=== PATIENT | female | born 1945 | race Caucasian/White ===

== ENCOUNTER 2017-10-17 09:00 | Emergency (ER) | payer BC, MEDICARE ==
[~2017-10-17] VITALS: Ht 165.1 cm; Wt 92.1 kg
[~2017-10-17 09:00] MED LIST: AMLODIPINE BES2.5 MG PO; APIDRA100 UNIT/2 SQ; APRIDA; APRIDA SC; ASPIRIN PO; ATORVASTATIN CA20 MG PO; DIOVAN160 MG PO; IRON PO; IRON325 M1; JANUVIA100 MG PO; METFORMIN HCL500 MG PO; NITROFURANTOIN100 MG PO; NOVOLOG100 UNIT/1 INJ; PANTOPRAZOLE SO40 MG PO; PRAVASTATIN SOD20 MG PO; PROAIR HFA INH8.5 GM INH; SPIRONOLACTONE25 MG PO; SUCRALFATE1 GM PO; SYMBICORT 16010.2 GM INH; TRADJENTA5 MG PO; VIT B12 10001000 MCG GT; VIT E PO; Z.0.ATENOLOL50 MG PO; Z.0.DIGOXIN125 MCG PO; Z.0.GLYBURIDE5 MG PO; Z.0.LANTUS100 UNIT/1 SQ; Z.0.LEVOTHYROXINE175 PO; Z.0.LISINOPRIL5 MG PO; Z.0.PANTOPRAZOLE SO4 PO; [UNRECOGNIZED DRUG - OTHER] PO
--- OUTSIDE RECORDS SUMMARY | 2017-10-17 09:03 | XMS REPORT | Summary of Care ---
Author Author MIKE ARMSTRONG M.D. Organization Unknown Address [facility] Phone Unavailable Care Team Providers Care Baseball Hand Sewer Name Role Phone MIKE ARMSTRONG M.D. Unavailable Unavailable Unavailable Unavailable Functional Status Name Dates Details Functional status health issues are not documented Status: Name Dates Details Cognitive status health issues are not documented Status: Problems Name Dates Details Joint pain, hip (719.45, M25.559) Status: Active Diverticulitis (562.11, K57.92) Status: Active Heart disease (429.9, I51.9) Status: Active Cyst of left kidney (753.10, N28.1) Status: Active Cirrhosis, nonalcoholic (571.5, K74.60) Status: Active Vaginal candidiasis (112.1, B37.3) Status: Active Gastroparesis (536.3, K31.84) Status: Active Hyperlipidemia (272.4, E78.5) Status: Active Hypertension (401.9, I10) Status: Active COPD (chronic obstructive pulmonary disease) (496, J44.9) Status: Active Diabetes mellitus (250.00, E11.9) Status: Active Hypothyroidism (244.9, E03.9) Status: Active Diabetes mellitus type 2, uncontrolled (250.02, E11.65) Status: Active Medications Name Dates Details Atenolol 50 MG Oral Tablet TAKE 1 TABLET TWICE DAILY Active Aspirin 81 MG TABS TAKE 1 TABLET DAILY. * Refills: 0 Active Digoxin 125 MCG Oral Tablet TAKE 1 TABLET DAILY. * Refills: 0 Active Valsartan 160 MG Oral Tablet TAKE 1 TABLET DAILY. * Quantity: 90 Refills: 1 MIKE ARMSTRONG M.D. Active Pantoprazole Sodium 40 MG Oral Tablet Delayed Release TAKE 1 TABLET TWICE DAILY * Refills: 0 Active Levothyroxine Sodium 175 MCG Oral Tablet TAKE 1 TABLET BY MOUTH DAILY * Quantity: 90 Refills: 0 MIKE ARMSTRONG M.D. * Start : 06-Aug-2017 Active Spironolactone 25 MG Oral Tablet TAKE 1 TABLET DAILY * Refills: 0 Active Iron TABS TAKE 1 TAB BID * Refills: 0 Active V-R Vitamin E CAPS Take 1 cap BID * Refills: 0 Active MetFORMIN HCl - 500 MG Oral Tablet TAKE 2 TABLETS BY MOUTH TWICE DAILY * Quantity: 360 Refills: 0 MIKE ARMSTRONG M.D. * Start : 06-Aug-2017 Active Lantus SoloStar 100 UNIT/ML Subcutaneous Solution Pen-injector INJECT 55 UNITS TWICE AT BEDTIME MAX DAILY DOSE OF 120 UNITS * Quantity: 3 Refills: 3 MIKE ARMSTRONG M.D. * Start : 19-May-2017 Active 3 ML Pen Januvia 100 MG Oral Tablet take 1 tablet po daily * Quantity: 90 Refills: 0 MIKE ARMSTRONG M.D. * Start : 05-Nov-2014 Active Rikki Contour Next Test In Vitro Strip Check BG 4x a day * Quantity: 4 Refills: 0 MIKE ARMSTRONG M.D. * Start : 05-Nov-2014 Active 100 Strip Box NovoLOG FlexPen 100 UNIT/ML Subcutaneous Solution Pen-injector inject 55 U w/large breakfast but 25 U w/small breakfast, 35 U w/lunch and 50 U w/dinner plus CF 1:50>150 mg/dL, if has snack 15 U MDD:160 U * Quantity: 4 Refills: 2 MIKE ARMSTRONG M.D. * Start : 03-Jul-2015 Active 5 x 3 ML Pen Unifine Pentips 31G X 8 MM use with insulin pens to inject 4xs daily * Quantity: 400 Refills: 0 MIKE ARMSTROGN M.D. * Start : 31-Jul-2015 Active Atorvastatin Calcium 20 MG Oral Tablet TAKE 1 TABLET BY MOUTH AT BEDTIME * Quantity: 90 Refills: 0 MIKE ARMSTRONG M.D. * Start : 30-May-2017 Active Symbicort AERO * Refills: 0 Active AmLODIPine Besylate 2.5 MG Oral Tablet TAKE 1 TABLET DAILY. * Refills: 0 Active ProAir HFA AERS * Refills: 0 Active Allergies and Adverse Reactions Name Dates Details Bactrim TABS (Allergy) Status: Active Lasix (Allergy) Status: Active Adhesive Tape (Allergy) Status: Active Past Medical History Name Dates Details History of Back pain (724.5, M54.9) Status: Resolved History of Kidney stones (592.0, N20.0) Status: Resolved History of Pneumonia (486, J18.9) Status: Resolved Procedures Procedure Dates Details History of Section Completed History of Wrist Surgery Completed History of Hysterectomy Completed History of Tubal Ligation Completed History of Colon Surgery Completed History of Knee Surgery Completed Immunization Name Dates Details Immunizations not documented Family History Name Dates Details Family history of Cancer (199.1, C80.1) Status: Active Family history of Heart disease (429.9, I51.9) Status: Active Family history of Arthritis (716.90, M19.90) Status: Active Family history of Depression (311, F32.9) Status: Active Name Dates Details Family history of Diabetes (250.00, E11.9) Status: Active Family history of Hypertension (401.9, I10) Status: Active Social History Name Dates Details - Status: Name Dates Details Former smoker Vital Signs Date Test Result Details No Known Vitals to report Results Date Description Value Details Results not documented Plan of Care Name Dates Details Planned Observations Planned Goals not documented Planned Encounters Appointment; MIKE ARMSTRONG M.D. On: 26-Sep-2017 14:00 Instructions Name Dates Details Instructions not documented Encounters Appointment; MIKE ARMSTRONG M.D. Encounter Diagnosis: Problem not documented On: 02-Oct-2015 14:00 Appointment; MIKE ARMSTRONG M.D. Encounter Diagnosis: Problem not documented On: 02-Feb-2016 14:00 Appointment; MIKE ARMSTRONG M.D. Encounter Diagnosis: Problem not documented On: 05-May-2016 16:00 Appointment; MIKE ARMSTRONG M.D. Encounter Diagnosis: Problem not documented On: 11-Aug-2016 15:30 Appointment; MIKE ARMSTRONG M.D. Encounter Diagnosis: Problem not documented On: 11-Nov-2016 13:00 Appointment; MIKE ARMSTRONG M.D. Encounter Diagnosis: Problem not documented On: 29-Mar-2017 13:00 Appointment; MIKE ARMSTRONG M.D. Encounter Diagnosis: Problem not documented On: 28-Jun-2017 13:00
[2017-10-17] MEDS ORDERED: HYDROCODONE/APAP 7.5MG-325MG 1 EA TAB PO ONE (10:00)
--- NOTE | 2017-10-17 11:06 | Diagnostic Imaging Report ---
FOREARM LEFT 2 VIEW, WRIST COMPLETE LEFT HISTORY: Fall. COMPARISON: None available. FINDINGS: Bones: Mildly comminuted mildly displaced impaction fracture of the distal radius with intra-articular extension. Osseous alignment is within normal limits. Joints: Moderate degenerative changes of the first carpometacarpal joint. Soft tissues: The soft tissues appear unremarkable. IMPRESSION: Acute fracture of the distal radius. Signed by: DR. Rebel Malcolm MD on 10/17/2017 11:02 AM
[2017-10-17 12:24] VITALS: BP 144/95
== END 2017-10-17 12:25 | disposition home or self-care (01) ==
LOC: ER 09:00
DX: S52.502A Unspecified fracture of the lower end of left radius, initial encounter for closed fracture (principal); W19.XXXA Unspecified fall, initial encounter; Y92.009 Unspecified place in unspecified non-institutional (private) residence as the place of occurrence of the external cause; I10 Essential (primary) hypertension; E11.9 Type 2 diabetes mellitus without complications; Z79.4 Long term (current) use of insulin; I48.91 Unspecified atrial fibrillation; K74.60 Unspecified cirrhosis of liver
CPT/HCPCS: 99283

== ENCOUNTER 2017-12-19 16:00 | Outpatient (RCR) | payer BC, MEDICARE | END 2017-12-20 | LOC: OT 16:00 | PROVIDERS: ATTEND Specialist | DX: S52.502D Unspecified fracture of the lower end of left radius, subsequent encounter for closed fracture with routine healing (principal); M25.532 Pain in left wrist; M25.632 Stiffness of left wrist, not elsewhere classified; R53.1 Weakness | CPT/HCPCS: 97022 ×5; 97110 ×6; 97165; G8987; G8988 ==

== ENCOUNTER 2018-01-10 08:56 | Outpatient (RCR) | payer BC, MEDICARE | END 2018-01-20 | LOC: OT 08:56 | PROVIDERS: ATTEND Specialist | DX: S52.502D Unspecified fracture of the lower end of left radius, subsequent encounter for closed fracture with routine healing (principal); M25.532 Pain in left wrist; M25.632 Stiffness of left wrist, not elsewhere classified; R53.1 Weakness | CPT/HCPCS: 97010; 97022 ×6; 97110 ×7; 97140; G8987; G8988 ==

== ENCOUNTER 2018-02-14 10:57 | Outpatient (RCR) | payer BC, MEDICARE ==
[2018-02-20] MEDS ORDERED: SIMBICORT (12:47)
[2018-02-20] MEDS ORDERED: ASPIRIN81 MG (12:47)
== END 2018-02-19 ==
LOC: OT 10:57
PROVIDERS: ATTEND Specialist
DX: S62.102A Fracture of unspecified carpal bone, left wrist, initial encounter for closed fracture (principal)
CPT/HCPCS: 97022 ×3; 97110 ×3; 97139; 97168; G8987; G8988

== ENCOUNTER → 2018-02-22 | Day surgery (SDC) | payer BC, MEDICARE ==
[2018-02-20 13:03] LABS: BASOPHILS % 0.6 % (0.0-1.0); EOSINOPHILS # (AUTO) 0.1 (0.0-0.4); EOSINOPHILS % 2.3 % (0.0-6.0); HEMATOCRIT 33.6 % (34.2-44.1); HEMOGLOBIN 11.2 g/dL (12.0-16.0); LYMPHOCYTES # (AUTO) 0.6 (1.0-3.2); LYMPHOCYTES % 17.5 % (18.0-39.1); MEAN CORPUSCULAR HEMOGLOBIN 29.1 pg (28-32); MEAN CORPUSCULAR HGB CONC 33.3 g/dL (31-35); MEAN CORPUSCULAR VOLUME 87.3 fL (81-99); MONOCYTES # (AUTO) 0.4 (0.2-0.8); MONOCYTES % 11.6 % (4.4-11.3); NEUTROPHILS # (AUTO) 2.4 (2.1-6.9); NEUTROPHILS % 67.7 % (38.7-80.0); PLATELET COUNT 56 x10e3/uL (140-360); RED BLOOD COUNT 3.85 x10e6/uL (3.6-5.1); RED CELL DISTRIBUTION WIDTH 14.2 % (11.7-14.4)
[2018-02-20 13:20] LABS: INR 1.03; PARTIAL THROMBOPLASTIN TIME 27.5 seconds (23.8-35.5); PROTHROMBIN TIME 14.4 seconds (11.9-14.5)
[2018-02-20 13:29] LABS: ALANINE AMINOTRANSFERASE 23 IU/L (0-55); ALBUMIN 3.7 g/dL (3.5-5.0); ALBUMIN/GLOBULIN RATIO 1.1 (0.8-2.0); ALKALINE PHOSPHATASE 109 IU/L (40-150); ANION GAP 14.9 mmol/L (8-16); BLOOD UREA NITROGEN 10 mg/dL (7-26); BUN/CREATININE RATIO 13 (6-25); CALCIUM 9.5 mg/dL (8.4-10.2); CARBON DIOXIDE 24 mmol/L (22-29); CHLORIDE 104 mmol/L (98-107); CREATININE, SERUM 0.79 mg/dL (0.57-1.11); EST GLOMERULAR FILTRATION RATE > 60 ML/MIN (60-); GLUCOSE 140 mg/dL (74-118); POTASSIUM 3.9 mmol/L (3.5-5.1); SODIUM 139 mmol/L (136-145)
[~2018-02-22] MED LIST changes: +ASPIRIN81 MG; +FENTANYL CITRATE/PF 100MCG/2 ML INJ ONE; +PROPOFOL IV EMULSION 10 MG/ML 20 ML VIAL ONE; +SIMBICORT
[2018-02-22 12:30] VITALS: BP 176/62
== END | disposition home or self-care (01) ==
LOC: OR 08:52
PROVIDERS: ATTEND Internal Medicine Gastroenterology
DX: K74.60 Unspecified cirrhosis of liver (principal); K29.70 Gastritis, unspecified, without bleeding; I85.10 Secondary esophageal varices without bleeding; K57.30 Diverticulosis of large intestine without perforation or abscess without bleeding; K44.9 Diaphragmatic hernia without obstruction or gangrene; K76.6 Portal hypertension; K31.89 Other diseases of stomach and duodenum; K21.9 Gastro-esophageal reflux disease without esophagitis; Z71.3 Dietary counseling and surveillance; E66.9 Obesity, unspecified; I10 Essential (primary) hypertension; E11.43 Type 2 diabetes mellitus with diabetic autonomic (poly)neuropathy; D69.6 Thrombocytopenia, unspecified; M19.90 Unspecified osteoarthritis, unspecified site; F32.9 Major depressive disorder, single episode, unspecified; G47.33 Obstructive sleep apnea (adult) (pediatric); J44.9 Chronic obstructive pulmonary disease, unspecified; E03.9 Hypothyroidism, unspecified; I48.91 Unspecified atrial fibrillation; E78.5 Hyperlipidemia, unspecified; Z01.810 Encounter for preprocedural cardiovascular examination; Z01.812 Encounter for preprocedural laboratory examination; Z88.1 Allergy status to other antibiotic agents; Z91.040 Latex allergy status; Z88.2 Allergy status to sulfonamides; Z88.8 Allergy status to other drugs, medicaments and biological substances; Z91.048 Other nonmedicinal substance allergy status; Z79.82 Long term (current) use of aspirin; Z79.4 Long term (current) use of insulin; Z68.34 Body mass index [BMI] 34.0-34.9, adult; Z87.891 Personal history of nicotine dependence
CPT/HCPCS: 36415; 43239; 80053; 82948; 85025; 85610; 85730; 93005

== ENCOUNTER 2018-03-02 10:00 | Outpatient (RCR) | payer BC, MEDICARE ==
[~2018-03-02 10:00] MED LIST changes: -FENTANYL CITRATE/PF 100MCG/2 ML INJ ONE; -PROPOFOL IV EMULSION 10 MG/ML 20 ML VIAL ONE
== END 2018-03-22 ==
LOC: OT 10:00
PROVIDERS: ATTEND Specialist
DX: S62.102A Fracture of unspecified carpal bone, left wrist, initial encounter for closed fracture (principal)
CPT/HCPCS: 97022 ×4; 97110 ×4; 97139; G8988; G8989

== ENCOUNTER 2019-03-04 12:43 | Inpatient (IN) | payer MEDICARE, BC ==
[~2019-03-04] VITALS: Ht 165.1 cm; Wt 85.4 kg
[2019-03-04] MEDS ORDERED: ACETAMINOPHEN 325 MG TAB PO ONE (13:00)
--- NOTE | 2019-03-04 13:19 | Diagnostic Imaging Report ---
EXAMINATION: CXR 2 VIEW - HOPD INDICATION: Cough, COPD. COMPARISON: None FINDINGS: TUBES and LINES: None. LUNGS: Hyperinflated lungs. Patchy opacities in the bilateral lower lungs. No evidence of lobar consolidation. There is a focal opacity in the lateral right midlung. PLEURA: No pleural effusion or pneumothorax. HEART AND MEDIASTINUM: The cardiomediastinal silhouette is unremarkable. There are atherosclerotic calcifications within the aorta. BONES AND SOFT TISSUES: No acute osseous abnormality. UPPER ABDOMEN: No free air under the diaphragm. IMPRESSION: Emphysematous changes of the lungs with mild patchy opacities at the lung bases which may represent early pneumonia in the setting of cough. Focal opacity in the lateral aspect of the right midlung, may represent additional site of infection, although pulmonary nodule is not excluded. Recommend follow-up chest radiograph in 6-8 weeks to assess for resolution. Signed by: Dr. Sukhdeep Muller MD on 03/04/2019 1:16 PM
[2019-03-04] MEDS ORDERED: ACETAMINOPHEN 325 MG TAB ONE (13:27)
[2019-03-04] MEDS ORDERED: LEVOFLOXACIN 750MG/D5W 150ML 150 ML IV ONE ×2 (13:30→13:34)
[2019-03-04] MEDS ORDERED: AZITHROMYCIN 500MG/NS 250 ML 250 ML ONE (13:31)
--- NOTE | 2019-03-04 14:10 | NUR ---
CALLED LAB TO NOTIFY OF BLOOD, BC, LACTIC BEING SENT; SPOKE TO ARNOLDO
--- NOTE | 2019-03-04 14:19 | NUR ---
NOW NEEDING EKG. 12 LEAD DONE PER MD ORDER
--- NOTE | 2019-03-04 14:24 | NUR ---
PURPLE TOP SENT TO MAIN LAB TO HAVE CBC RE RAN PER MD.
[2019-03-04 15:07] LABS: BASOPHILS % 0.4 % (0.0-1.0); EOSINOPHILS # (AUTO) 0.1 (0.0-0.4); EOSINOPHILS % 0.6 % (0.0-6.0); HEMATOCRIT 27.6 % (34.2-44.1); HEMOGLOBIN 8.3 g/dL (12.0-16.0); LYMPHOCYTES % 12.1 % (18.0-39.1); MEAN CORPUSCULAR HEMOGLOBIN 22.6 pg (28-32); MEAN CORPUSCULAR HGB CONC 30.1 g/dL (31-35); MONOCYTES # (AUTO) 1.2 (0.2-0.8); MONOCYTES % 14.1 % (4.4-11.3); NEUTROPHILS % 72.4 % (38.7-80.0); PLATELET COUNT 113 x10e3/uL (140-360); RED BLOOD COUNT 3.68 x10e6/uL (3.6-5.1); RED CELL DISTRIBUTION WIDTH 17.2 % (11.7-14.4)
[2019-03-04] MEDS ORDERED: SODIUM CHLORIDE 0.9% 1000ML 1,000 ML IV SCH (15:30)
[2019-03-04] MEDS ORDERED: SODIUM CHLORIDE FLUSH 10 ML SYR INJ PRN (15:30)
--- NOTE | 2019-03-04 15:33 | NUR ---
CALLED EMS FOR TRANSPORT
--- NOTE | 2019-03-04 15:40 | NUR ---
REPORT TO EMS.
[2019-03-04] MEDS ORDERED: SODIUM CHLORIDE 0.9% 1000ML 500 ML IV SCH (15:45)
[2019-03-04] MEDS ORDERED: DEXTROSE 50% SYRINGE 50 ML IV PRN (15:45)
[2019-03-04 16:43] VITALS: BP 149/88
[2019-03-04] MEDS ORDERED: SODIUM CHLORIDE 0.9% 500ML 500 ML IV SCH (17:30)
[2019-03-04] MEDS: CEFEPIME 1GM/NS 0.9% 50 ML 50 ML IV SCH (18:12)
[2019-03-04 19:00] VITALS: BP 167/58
[2019-03-04 20:00] VITALS: BP 180/67
[2019-03-04] MEDS: INSULIN REGULAR, HUMAN 100 UNIT/1 ML 3ML VIAL SQ SCH ×2 (20:07→20:20)
[2019-03-04] MEDS: AZITHROMYCIN 500MG/NS 250 ML 250 ML IV SCH (20:10)
[2019-03-04] MEDS ORDERED: INSULIN REGULAR, HUMAN 100 UNIT/1 ML 3ML VIAL ONE (20:22)
--- NOTE | 2019-03-04 20:52 | NUR ---
Call to Dr. Potts re: HTN. Orders given.
[2019-03-04] MEDS: LABETALOL HCL 5 MG/ML 20ML VIAL IV PRN ×2 (20:55→23:10)
--- NOTE | 2019-03-04 20:55 | NUR ---
Labetalol 5mg IV given per orders.
[2019-03-04 21:00] VITALS: BP 157/73
[2019-03-04 22:00] VITALS: BP 151/63
[2019-03-04 23:00] VITALS: BP 168/60
[2019-03-05] VITALS (26 sets, daily range): BP systolic 131–185; BP diastolic 50–103
[2019-03-05] MEDS: LABETALOL HCL 5 MG/ML 20ML VIAL IV PRN ×2 (02:07→06:38)
[2019-03-05] MEDS ORDERED: HYDRALAZINE HCL 20 MG/ML VIAL IV STA (03:38)
--- NOTE | 2019-03-05 03:40 | NUR ---
BP 190/[address] Potts. New orders given.
--- NOTE | 2019-03-05 03:44 | NUR ---
Hydralazine 10mg IV given.
[2019-03-05] MEDS ORDERED: HYDRALAZINE HCL 20 MG/ML VIAL IV PRN (03:45)
[2019-03-05] MEDS ORDERED: DILTIAZEM HCL 5 MG/ML 5 ML VIAL IV STA (04:18)
--- NOTE | 2019-03-05 04:24 | NUR ---
Call to Dr. Potts. Advised of EKG in A Fib with RVR. Orders given.
[2019-03-05] MEDS ORDERED: DILTIAZEM HCL IV 5MG/ML 25 ML VIAL ONE (04:26)
[2019-03-05] MEDS ORDERED: SODIUM CHLORIDE 0.9% 100 ML ONE (04:26)
--- NOTE | 2019-03-05 04:26 | NUR ---
Cardizem 10mg IV bolus given then Cardizem drip started at 5mg/hr and increased to 10mg/hr after 15 min.
[2019-03-05] MEDS: DILTIAZEM HCL 125 ML IV SCH (04:30)
[2019-03-05 05:58] LABS: ANION GAP 13.9 mmol/L (8-16); BLOOD UREA NITROGEN 10 mg/dL (7-26); BUN/CREATININE RATIO 13 (6-25); CARBON DIOXIDE 22 mmol/L (22-29); CHLORIDE 105 mmol/L (98-107); CREATININE, SERUM 0.76 mg/dL (0.57-1.11); EST GLOMERULAR FILTRATION RATE > 60 ML/MIN (60-); GLUCOSE 173 mg/dL (74-118); POTASSIUM 3.9 mmol/L (3.5-5.1); SODIUM 137 mmol/L (136-145)
--- NOTE | 2019-03-05 06:02 | NUR ---
HR 120s. Increased Cardizem to 15mg/hr.
[2019-03-05 06:03] LABS: BASOPHILS % 0.4 % (0.0-1.0); EOSINOPHILS # (AUTO) 0.1 (0.0-0.4); EOSINOPHILS % 1.1 % (0.0-6.0); HEMATOCRIT 25.3 % (34.2-44.1); HEMOGLOBIN 7.4 g/dL (12.0-16.0); LYMPHOCYTES # (AUTO) 0.8 (1.0-3.2); LYMPHOCYTES % 17.3 % (18.0-39.1); MEAN CORPUSCULAR HEMOGLOBIN 22.2 pg (28-32); MEAN CORPUSCULAR HGB CONC 29.2 g/dL (31-35); MEAN CORPUSCULAR VOLUME 75.7 fL (81-99); MONOCYTES # (AUTO) 0.6 (0.2-0.8); MONOCYTES % 14.2 % (4.4-11.3); NEUTROPHILS % 66.6 % (38.7-80.0); PLATELET COUNT 80 x10e3/uL (140-360); RED BLOOD COUNT 3.34 x10e6/uL (3.6-5.1); RED CELL DISTRIBUTION WIDTH 16.9 % (11.7-14.4)
[2019-03-05] MEDS: INSULIN REGULAR, HUMAN 100 UNIT/1 ML 3ML VIAL SQ SCH ×4 (08:06→21:48)
--- NOTE | 2019-03-05 08:40 | NUR ---
H&P cc:sob/cough HPI: 73yoF, PCP , developed sob/cough; Pt has a hx smoking, and recently dx with emphysema. Saw her reliability technologist on 02/12, given steroids and antibiotics, initially improved, but worsened again. PMH: diverticulosis, DM, HTN, PAF, former smoker PSxh: , Hysterectomy Allergies; see emr FH/SH: former smoker; ; Meds; see MR ROS; no f/c/s/N/V/D/TALAVERA/vision changes/skin rash/back pain/leg pain/mood changes v/s; revd PE tired appearinga nicteric ns1s2 reduced BS; no w soft nt nd no e/t skin dry flat affect a&ox3; busby labs/med; revd A/P: AECOPD Pancytopenia Microcytic anemia Obesity BMI 31.3 PAF Former smoker PLAN IV abx lipids/hba1c PT consult ppi; scd Srinivas Potts MD, PhD.
[2019-03-05] MEDS ORDERED: NON-FORMULARY MEDICATION (Levothyroxine Sodium 175 MCG) PO SCH (09:00)
[2019-03-05] MEDS ORDERED: DIGOXIN 125 MCG PO SCH (09:00)
[2019-03-05] MEDS ORDERED: GUAIFENESIN/DEXTROMETHORPHAN LIQD 5 ML UDC NG PRN (09:15)
[2019-03-05 09:24] LABS: CHOL/HDL RATIO 4.6 (3.0-3.6)
--- NOTE | 2019-03-05 09:31 | Diagnostic Imaging Report ---
Chest, 1 view, 03/05/2019. History: Pneumonia. Comparison: 03/04/2019. Findings: The cardiomediastinal silhouette and pulmonary vasculature are within normal limits for a portable exam. Patchy bibasilar opacities are present, left greater than right. There are no acute osseous or soft tissue abnormalities. Impression: Slight increase in bibasilar patchy opacities. Signed by: Lenin Werner on 03/05/2019 9:27 AM
[2019-03-05] MEDS: SPIRONOLACTONE 25 MG TAB PO SCH (09:41)
[2019-03-05] MEDS: ASPIRIN 81 MG CHEW TAB PO SCH (09:41)
[2019-03-05] MEDS: SITAGLIPTIN 100 MG TAB PO SCH (09:41)
[2019-03-05] MEDS: PANTOPRAZOLE SOD 40 MG TABEC PO SCH ×2 (09:42→16:39)
[2019-03-05] MEDS: ATENOLOL 50 MG TAB PO SCH ×2 (09:42→16:39)
[2019-03-05] MEDS: ATORVASTATIN 20 MG TAB PO SCH (09:42)
[2019-03-05] MEDS: DIGOXIN 0.125 MG TAB PO SCH (09:43)
[2019-03-05] MEDS: BENZONATATE 100 MG CAP PO SCH ×3 (09:43→23:37)
[2019-03-05 09:51] LABS: FERRITIN 25.21 ng/mL (4.63-204.00)
[2019-03-05] MEDS: METHYLPREDNISOLONE SOD SUCC 40 MG/ML VIAL 1ML IV SCH ×2 (09:58→21:13)
[2019-03-05] MEDS: LEVOTHYROXINE SODIUM 75 MCG TAB PO SCH (10:00)
[2019-03-05] MEDS: LEVOTHYROXINE SODIUM 100 MCG TAB PO SCH (10:00)
[2019-03-05] MEDS: GUAIFENESIN/DEXTROMETHORPHAN LIQD 5 ML UDC NG SCH ×2 (13:30→23:37)
[2019-03-05] MEDS: CEFEPIME 1GM/NS 0.9% 50 ML 50 ML IV SCH (17:11)
[2019-03-05] MEDS ORDERED: NON-FORMULARY MEDICATION (Amlodipine Besylate 2.5 MG) PO SCH (21:00)
[2019-03-05] MEDS: AMLODIPINE BESYLATE 5 MG TAB PO SCH ×2 (21:00→21:40)
[2019-03-05] MEDS: VALSARTAN 160 MG TAB PO SCH ×2 (21:00→21:40)
[2019-03-05] MEDS: AZITHROMYCIN 500MG/NS 250 ML 250 ML IV SCH (21:05)
[2019-03-06] VITALS (11 sets, daily range): BP systolic 137–156; BP diastolic 50–68
[2019-03-06] MEDS: DILTIAZEM HCL 125 ML IV SCH (04:30)
[2019-03-06] MEDS: GUAIFENESIN/DEXTROMETHORPHAN LIQD 5 ML UDC NG SCH (05:42)
[2019-03-06] MEDS: LEVOTHYROXINE SODIUM 100 MCG TAB PO SCH (05:42)
[2019-03-06] MEDS: LEVOTHYROXINE SODIUM 75 MCG TAB PO SCH (05:42)
[2019-03-06] MEDS: BENZONATATE 100 MG CAP PO SCH (05:43)
--- NOTE | 2019-03-06 07:30 | NUR ---
D/C Summary Principal dx: AECOPD Pancytopenia Microcytic anemia Secondary Dx: Obesity BMI 31.3 PAF Former smoker PLAN IV abx lipids/hba1c PT consult ppi; scd 10-15 Thrombocytopenia- d/c ppi; cont meds; Iron-deficiency anemia- start ferrous sulfate. 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
[2019-03-06] MEDS: INSULIN REGULAR, HUMAN 100 UNIT/1 ML 3ML VIAL SQ SCH (07:48)
[2019-03-06] MEDS ORDERED: FERROUS SULFATE 325 MG TAB PO SCH (08:00)
[2019-03-06] MEDS ORDERED: FERROUS SULFAT325 MG PO (08:05)
[2019-03-06] MEDS ORDERED: TESSALON PERLE100 MG PO (08:05)
[2019-03-06] MEDS ORDERED: Guaifenesin/Dextromethorphan NG (08:05)
[2019-03-06] MEDS ORDERED: VITAMIN B-121000 MCG PO (08:05)
[2019-03-06] MEDS ORDERED: CEFUROXIME500 MG PO (08:06)
[2019-03-06] MEDS ORDERED: PREDNISONE20 MG PO (08:06)
[2019-03-06] MEDS ORDERED: ZITHROMAX500 MG PO (08:06)
[2019-03-06] MEDS: SPIRONOLACTONE 25 MG TAB PO SCH (08:19)
[2019-03-06] MEDS: SITAGLIPTIN 100 MG TAB PO SCH (08:19)
[2019-03-06] MEDS: ASPIRIN 81 MG CHEW TAB PO SCH (08:19)
[2019-03-06] MEDS: ATORVASTATIN 20 MG TAB PO SCH (08:19)
[2019-03-06] MEDS: METHYLPREDNISOLONE SOD SUCC 40 MG/ML VIAL 1ML IV SCH (08:19)
[2019-03-06] MEDS: ATENOLOL 50 MG TAB PO SCH (08:20)
[2019-03-06] MEDS: DIGOXIN 0.125 MG TAB PO SCH (08:20)
[2019-03-06] MEDS ORDERED: CYANOCOBALAMIN 1,000 MCG TAB PO SCH (09:00)
--- NOTE | 2019-03-06 10:15 | NUR ---
Per Dr. Potts patient ok to be discharged today. Patient given prescriptions and education about pneumonia and anemia. Pt educated to follow up with participant administrator and PCP in 1 week. PIV's x2 removed. Patient does not appear to be in any s/s of distress. Patient's came and is driving patient home.
--- NOTE | 2019-03-28 15:11 | NUR ---
ADDENDUM: Possible Bronchopneumonia was present from admission; treated. D/C Summary Principal dx: AECOPD Pancytopenia Microcytic anemia Secondary Dx: Obesity BMI 31.3 PAF Former smoker PLAN IV abx lipids/hba1c PT consult ppi; scd 10-15 Thrombocytopenia- d/c ppi; cont meds; Iron-deficiency anemia- start ferrous sulfate. 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
== END 2019-03-06 10:39 | disposition home or self-care (01) | DRG 190 ==
LOC: FSED 12:43 → ERHOLD 15:27 → FSED 15:53 → ICU 16:44
PROVIDERS: ADMIT Internal Medicine; ATTEND Internal Medicine
DX: J44.1 Chronic obstructive pulmonary disease with (acute) exacerbation (principal); J18.0 Bronchopneumonia, unspecified organism; D61.818 Other pancytopenia; Z88.8 Allergy status to other drugs, medicaments and biological substances; Z91.048 Other nonmedicinal substance allergy status; E10.9 Type 1 diabetes mellitus without complications; E78.00 Pure hypercholesterolemia, unspecified; K75.81 Nonalcoholic steatohepatitis (NASH); Z87.891 Personal history of nicotine dependence; D50.9 Iron deficiency anemia, unspecified; E66.9 Obesity, unspecified; Z68.31 Body mass index [BMI] 31.0-31.9, adult; I48.0 Paroxysmal atrial fibrillation
CPT/HCPCS: 36415; 71045; 71046; 80048; 80053; 80061; 81003; 82270; 82607; 82728; 82948; 83036; 83540; 83605; 84466; 84484; 85025; 87040; 87400; 93005; 96372; 99284; J0360; J0456; J0692; J1817; J2920; J7030; J7040; J7050

== ENCOUNTER 2020-12-05 11:27 | Emergency (ER) | payer MEDICARE, BC ==
[~2020-12-05] VITALS: Ht 165.1 cm; Wt 85.3 kg
[~2020-12-05 11:27] MED LIST changes: +CEFUROXIME500 MG PO; +FERROUS SULFAT325 MG PO; +Guaifenesin/Dextromethorphan NG; +PREDNISONE20 MG PO; +TESSALON PERLE100 MG PO; +VITAMIN B-121000 MCG PO; +ZITHROMAX500 MG PO
[2020-12-05] MEDS ORDERED: DEXTROSE 50% SYRINGE 50 ML IV STA (11:35)
[2020-12-05] MEDS ORDERED: ASPIRIN 81 MG CHEW TAB PO ONE (12:00)
[2020-12-05 12:05] LABS: BASOPHILS # (AUTO) 0.1 (0.0-0.1); BASOPHILS % 0.9 % (0.0-1.0); EOSINOPHILS # (AUTO) 0.4 (0.0-0.4); EOSINOPHILS % 3.9 % (0.0-6.0); HEMATOCRIT 29.2 % (34.2-44.1); HEMOGLOBIN 9.2 g/dL (12.0-16.0); LYMPHOCYTES # (AUTO) 2.7 (1.0-3.2); LYMPHOCYTES % 29.6 % (18.0-39.1); MEAN CORPUSCULAR HEMOGLOBIN 28.6 pg (28-32); MEAN CORPUSCULAR HGB CONC 31.5 g/dL (31-35); MEAN CORPUSCULAR VOLUME 90.7 fL (81-99); MONOCYTES # (AUTO) 1.6 (0.2-0.8); MONOCYTES % 17.2 % (4.4-11.3); NEUTROPHILS # (AUTO) 4.3 (2.1-6.9); NEUTROPHILS % 47.7 % (38.7-80.0); PLATELET COUNT 115 x10e3/uL (140-360); RED BLOOD COUNT 3.22 x10e6/uL (3.6-5.1); RED CELL DISTRIBUTION WIDTH 16.1 % (11.7-14.4)
[2020-12-05 12:27] LABS: ALBUMIN 3.2 g/dL (3.5-5.0); ALBUMIN/GLOBULIN RATIO 1.1 (0.8-2.0); ANION GAP 15.9 mmol/L (8-16); CREATININE, SERUM 1.48 mg/dL (0.57-1.11); POTASSIUM 3.9 mmol/L (3.5-5.1)
[2020-12-05 12:33] LABS: CREATINE KINASE MB 2.5 ng/mL (0-5.0)
[2020-12-05 13:38] VITALS: BP 160/58
== END 2020-12-05 13:45 | disposition home or self-care (01) ==
LOC: ER 11:36
DX: E11.649 Type 2 diabetes mellitus with hypoglycemia without coma (principal); I10 Essential (primary) hypertension; E78.5 Hyperlipidemia, unspecified; J44.9 Chronic obstructive pulmonary disease, unspecified; I48.91 Unspecified atrial fibrillation; E03.9 Hypothyroidism, unspecified; G47.30 Sleep apnea, unspecified; K21.9 Gastro-esophageal reflux disease without esophagitis; Z98.0 Intestinal bypass and anastomosis status
CPT/HCPCS: 36415; 80053; 82550; 82553; 82948; 84484; 85025; 93005; 99283

== ENCOUNTER 2020-12-17 01:54 | Inpatient (IN) | payer MEDICARE, BC ==
[~2020-12-17] VITALS: Ht 165.1 cm; Wt 85.3 kg
[2020-12-17] MEDS ORDERED: DEXTROSE 50% SYRINGE 50 ML IV STA (02:14)
[2020-12-17 02:19] LABS: BASOPHILS # (AUTO) 0.1 (0.0-0.1); BASOPHILS % 0.8 % (0.0-1.0); EOSINOPHILS # (AUTO) 0.2 (0.0-0.4); EOSINOPHILS % 1.9 % (0.0-6.0); HEMATOCRIT 34.2 % (34.2-44.1); HEMOGLOBIN 10.7 g/dL (12.0-16.0); LYMPHOCYTES # (AUTO) 1.6 (1.0-3.2); LYMPHOCYTES % 17.7 % (18.0-39.1); MEAN CORPUSCULAR HEMOGLOBIN 28.4 pg (28-32); MEAN CORPUSCULAR HGB CONC 31.3 g/dL (31-35); MEAN CORPUSCULAR VOLUME 90.7 fL (81-99); MONOCYTES # (AUTO) 1.2 (0.2-0.8); MONOCYTES % 13.5 % (4.4-11.3); NEUTROPHILS % 65.6 % (38.7-80.0); PLATELET COUNT 131 x10e3/uL (140-360); RED BLOOD COUNT 3.77 x10e6/uL (3.6-5.1); RED CELL DISTRIBUTION WIDTH 15.5 % (11.7-14.4)
[2020-12-17 02:34] LABS: ALBUMIN 3.8 g/dL (3.5-5.0); ALBUMIN/GLOBULIN RATIO 1.1 (0.8-2.0); ANION GAP 18.3 mmol/L (8-16); CALCIUM 10.2 mg/dL (8.4-10.2); CREATININE, SERUM 2.23 mg/dL (0.57-1.11); POTASSIUM 4.3 mmol/L (3.5-5.1)
[2020-12-17 02:36] LABS: CREATINE KINASE MB 2.8 ng/mL (0-5.0)
[2020-12-17] MEDS ORDERED: SODIUM BICARBONATE 8.4% INJ 50 ML SYR IV STA (02:47)
[2020-12-17] MEDS ORDERED: DEXTROSE 5% 1,000 ML IV ONE (03:00)
[2020-12-17] MEDS ORDERED: ALBUTEROL SULFATE HFA 8GM INHALATION AEROSOL INH PRN (06:45)
[2020-12-17] MEDS ORDERED: BUDESONIDE/FORMOTEROL 160/4.5MCG INHALER INH SCH (07:00)
[2020-12-17] MEDS ORDERED: LEVOTHYROXINE SODIUM 75 MCG TAB PO SCH (07:15)
[2020-12-17] MEDS ORDERED: LEVOTHYROXINE SODIUM 100 MCG TAB PO SCH (07:15)
[2020-12-17] MEDS ORDERED: PANTOPRAZOLE SOD 40 MG TABEC PO SCH (07:30)
[2020-12-17 07:44] LABS: CREATINE KINASE MB 3.3 ng/mL (0-5.0)
[2020-12-17] MEDS ORDERED: FERROUS SULFATE 325 MG TAB PO SCH (08:00)
[2020-12-17] MEDS ORDERED: CYANOCOBALAMIN 1,000 MCG TAB PO SCH (09:00)
[2020-12-17] MEDS ORDERED: DIGOXIN 0.125 MG TAB PO SCH (09:00)
[2020-12-17] MEDS ORDERED: SPIRONOLACTONE 25 MG TAB PO SCH (09:00)
[2020-12-17] MEDS ORDERED: ATENOLOL 50 MG TAB PO SCH (09:00)
[2020-12-17] MEDS ORDERED: ASPIRIN 81 MG CHEW TAB PO SCH (09:00)
[2020-12-17 12:49] VITALS: BP 151/69
[2020-12-17] MEDS ORDERED: ATORVASTATIN 20 MG TAB PO SCH (21:00)
[2020-12-17] MEDS ORDERED: VALSARTAN 160 MG TAB PO SCH (21:00)
[2020-12-17] MEDS ORDERED: AMLODIPINE BESYLATE 5 MG TAB PO SCH (21:00)
== END 2020-12-17 13:46 | disposition home or self-care (01) | DRG 690 ==
LOC: ER 02:24 → ERHOLD 03:14
PROVIDERS: ADMIT Internal Medicine; ATTEND Internal Medicine
DX: N39.0 Urinary tract infection, site not specified (principal); E11.649 Type 2 diabetes mellitus with hypoglycemia without coma; Z79.4 Long term (current) use of insulin; J44.9 Chronic obstructive pulmonary disease, unspecified; E03.9 Hypothyroidism, unspecified; I48.91 Unspecified atrial fibrillation; Z79.01 Long term (current) use of anticoagulants; F32.9 Major depressive disorder, single episode, unspecified; D64.9 Anemia, unspecified; Z79.899 Other long term (current) drug therapy; E78.5 Hyperlipidemia, unspecified; E66.9 Obesity, unspecified; Z68.31 Body mass index [BMI] 31.0-31.9, adult; R94.31 Abnormal electrocardiogram [ECG] [EKG]
CPT/HCPCS: 36415; 71045; 80053; 82550; 82553; 82948; 84484; 85025; 93005; 99284; J7070

== ENCOUNTER 2021-01-27 13:26 | Inpatient (IN) | payer MEDICARE, BC ==
[~2021-01-27] VITALS: Ht 165.1 cm; Wt 75.3 kg
[2021-01-27 14:06] LABS: BASOPHILS # (AUTO) 0.1 (0.0-0.1); BASOPHILS % 0.7 % (0.0-1.0); EOSINOPHILS # (AUTO) 0.1 (0.0-0.4); EOSINOPHILS % 1.6 % (0.0-6.0); HEMOGLOBIN 10.3 g/dL (12.0-16.0); LYMPHOCYTES # (AUTO) 1.9 (1.0-3.2); LYMPHOCYTES % 21.9 % (18.0-39.1); MEAN CORPUSCULAR HEMOGLOBIN 28.6 pg (28-32); MEAN CORPUSCULAR HGB CONC 31.2 g/dL (31-35); MEAN CORPUSCULAR VOLUME 91.7 fL (81-99); MONOCYTES # (AUTO) 1.6 (0.2-0.8); NEUTROPHILS % 57.5 % (38.7-80.0); PLATELET COUNT 127 x10e3/uL (140-360); RED CELL DISTRIBUTION WIDTH 15.5 % (11.7-14.4)
[2021-01-27 14:08] LABS: CLARITY,URINE SL CLOUDY (CLEAR); COLOR,URINE YELLOW (YELLOW); KETONES,URINE NEGATIVE (NEGATIVE); LEUKOCYTE ESTERASE ,URINE SMALL (NEGATIVE); NITRITE,URINE NEGATIVE (NEGATIVE); PROTEIN,URINE DIPSTICK 2+ (NEGATIVE); URINE UROBILINOGEN 0.2 mg/dL (0.2 - 1)
[2021-01-27 14:20] LABS: BACTERIA,URINE MANY /HPF; EPITHELIAL CELLS,URINE FEW /LPF
[2021-01-27 14:27] LABS: ALBUMIN 3.4 g/dL (3.5-5.0); ALBUMIN/GLOBULIN RATIO 1.2 (0.8-2.0); ANION GAP 17.5 mmol/L (8-16); CALCIUM 10.6 mg/dL (8.4-10.2); CREATININE, SERUM 2.39 mg/dL (0.57-1.11)
[2021-01-27 14:29] LABS: POTASSIUM 6.5 mmol/L (3.5-5.1)
[2021-01-27] MEDS ORDERED: LACTATED RINGER'S 1,000 ML INJ ONE (14:30)
[2021-01-27 14:36] LABS: CREATINE KINASE MB 2.3 ng/mL (0-5.0)
[2021-01-27] MEDS ORDERED: LACTATED RINGER'S 1,000 ML ONE (14:39)
[2021-01-27] MEDS ORDERED: DEXTROSE 50% SYRINGE 50 ML IV STA (15:14)
[2021-01-27] MEDS ORDERED: ALBUTEROL SULF 0.083% NEB SOLN 3 ML NEB NEB STA (15:14)
[2021-01-27] MEDS ORDERED: INSULIN REGULAR, HUMAN 100 UNIT/1 ML IV ONE (15:15)
[2021-01-27] MEDS: SODIUM CHLORIDE 0.9% 1000ML 1,000 ML IV SCH ×2 (15:34→21:41)
[2021-01-27] MEDS ORDERED: CEFTRIAXONE 1 GM in SODIUM CHLORIDE 0.9% 50ML 50 ML IV ONE (15:45)
[2021-01-27 15:46] LABS: ANION GAP 15.6 mmol/L (8-16); CALCIUM 10.7 mg/dL (8.4-10.2); CREATININE, SERUM 2.17 mg/dL (0.57-1.11)
[2021-01-27 15:48] LABS: POTASSIUM 6.6 mmol/L (3.5-5.1)
[2021-01-27] MEDS ORDERED: VITAMIN B-121000 MCG PO (16:02)
[2021-01-27] MEDS ORDERED: IRBESARTAN150 MG PO (16:04)
[2021-01-27] MEDS ORDERED: INSULIN AS100 UNIT/1 SC (16:04)
[2021-01-27] MEDS ORDERED: TOUJEO MAX300 UNIT/1 SC (16:04)
[2021-01-27] MEDS ORDERED: FUROSEMIDE40 MG PO (16:11)
[2021-01-27] MEDS ORDERED: BUMETANIDE INJ 0.25MG/ML 4ML VIAL IV ONE (16:15)
[2021-01-27 18:37] VITALS: BP 145/38
[2021-01-27 20:04] VITALS: BP 150/40
[2021-01-27] MEDS ORDERED: SOD POLYSTYRENE SULFONATE SUSP 15 GM/60 ML BTL PO NR (20:07)
[2021-01-27 21:00] VITALS: BP 150/40
[2021-01-27] MEDS ORDERED: MANNITOL 25% 12.5GM/50 ML VIAL IV ONE ×2 (21:30→23:45)
[2021-01-27] MEDS ORDERED: SODIUM BICARBONATE 8.4% 150 ML in STERILE WATER IV SOLN 1,000 ML IV SCH (21:45)
[2021-01-27] MEDS ORDERED: SODIUM BICARBONATE 8.4% 50 ML VIAL IV ONE (21:45)
[2021-01-27] MEDS ORDERED: DEXTROSE 50% SYRINGE 50 ML IV PRN (23:30)
[2021-01-27] MEDS ORDERED: SODIUM BICARBONATE 8.4% INJ 50 ML SYR IV STA (23:33)
[2021-01-27] MEDS ORDERED: SOD POLYSTYRENE SULFONATE SUSP 15 GM/60 ML BTL PO ONE (23:45)
[2021-01-27] MEDS ORDERED: DEXTROSE 5% 1,000 ML IV ONE (23:49)
[2021-01-27] MEDS ORDERED: SODIUM BICARBONATE 8.4% SYRING 150 ML ONE (23:49)
[2021-01-28] VITALS (10 sets, daily range): BP systolic 150–169; BP diastolic 40–54
[2021-01-28] MEDS ORDERED: SODIUM BICARBONATE 8.4% SYRING 150 ML ONE (00:07)
[2021-01-28] MEDS: SODIUM BICARBONATE 8.4% 150 ML in DEXTROSE 5% 1,000 ML IV SCH ×2 (00:12→08:34)
[2021-01-28] MEDS: LEVOTHYROXINE SODIUM 50 MCG TAB PO SCH (05:21)
[2021-01-28] MEDS: PANTOPRAZOLE SOD 40 MG TABEC PO SCH ×2 (05:21→16:38)
[2021-01-28 07:03] LABS: ANION GAP 16.8 mmol/L (8-16); CALCIUM 9.9 mg/dL (8.4-10.2); CREATININE, SERUM 1.94 mg/dL (0.57-1.11); POTASSIUM 4.8 mmol/L (3.5-5.1)
[2021-01-28 07:28] LABS: CREATINE KINASE MB 2.6 ng/mL (0-5.0)
[2021-01-28] MEDS: AMLODIPINE BESYLATE 5 MG TAB PO SCH (08:35)
[2021-01-28] MEDS: ATENOLOL 50 MG TAB PO SCH ×2 (08:37→17:00)
[2021-01-28] MEDS: INSULIN LISPRO 100 UNIT/1 ML 3ML VIAL SQ SCH ×4 (08:52→22:19)
[2021-01-28] MEDS: DEXTROSE 5% 1,000 ML IV SCH ×2 (12:53→23:45)
[2021-01-28] MEDS: CEFTRIAXONE 1 GM in SODIUM CHLORIDE 0.9% 50ML 50 ML IV SCH (16:38)
[2021-01-28] MEDS: CYANOCOBALAMIN 1,000 MCG TAB PO SCH (22:16)
[2021-01-28] MEDS: ATORVASTATIN 20 MG TAB PO SCH (22:16)
[2021-01-28] MEDS: INSULIN GLARGINE 100 UNITS/ML VIAL SC SCH (22:19)
[2021-01-29] VITALS (8 sets, daily range): BP systolic 132–150; BP diastolic 41–53
[2021-01-29] MEDS: DEXTROSE 5% 1,000 ML IV SCH ×2 (04:15→12:15)
[2021-01-29] MEDS: PANTOPRAZOLE SOD 40 MG TABEC PO SCH ×2 (05:57→16:05)
[2021-01-29] MEDS: LEVOTHYROXINE SODIUM 50 MCG TAB PO SCH (05:57)
[2021-01-29 06:19] LABS: CALCIUM 8.9 mg/dL (8.4-10.2); CREATININE, SERUM 1.46 mg/dL (0.57-1.11)
[2021-01-29 07:04] LABS: PHOSPHORUS 2.7 MG/DL (2.3-4.7); THYROID STIMULATING HORMONE 0.008 uIU/mL (0.350-4.940)
[2021-01-29 07:24] LABS: BASOPHILS % 0.9 % (0.0-1.0); EOSINOPHILS # (AUTO) 0.1 (0.0-0.4); EOSINOPHILS % 2.6 % (0.0-6.0); HEMATOCRIT 29.2 % (34.2-44.1); HEMOGLOBIN 9.5 g/dL (12.0-16.0); LYMPHOCYTES # (AUTO) 1.3 (1.0-3.2); LYMPHOCYTES % 28.6 % (18.0-39.1); MEAN CORPUSCULAR HGB CONC 32.5 g/dL (31-35); MONOCYTES # (AUTO) 0.8 (0.2-0.8); MONOCYTES % 18.5 % (4.4-11.3); NEUTROPHILS # (AUTO) 2.2 (2.1-6.9); NEUTROPHILS % 49.2 % (38.7-80.0); RED BLOOD COUNT 3.28 x10e6/uL (3.6-5.1); RED CELL DISTRIBUTION WIDTH 15.3 % (11.7-14.4)
[2021-01-29 08:02] LABS: PLATELET COUNT 67 x10e3/uL (140-360)
[2021-01-29] MEDS: ATENOLOL 50 MG TAB PO SCH ×2 (08:20→16:05)
[2021-01-29] MEDS: AMLODIPINE BESYLATE 5 MG TAB PO SCH (08:22)
[2021-01-29] MEDS: INSULIN LISPRO 100 UNIT/1 ML 3ML VIAL SQ SCH ×4 (08:33→21:42)
[2021-01-29] MEDS ORDERED: MAGNESIUM SULFATE 2GM/50ML 50 ML IV ONE (11:00)
[2021-01-29] MEDS ORDERED: IRON SUCROSE 100 MG in SODIUM CHLORIDE 0.9% 100 ML 100 ML IV SCH (14:00)
[2021-01-29] MEDS ORDERED: SODIUM CHLORIDE 0.9% 500ML 500 ML ONE (14:30)
[2021-01-29] MEDS: CEFTRIAXONE 1 GM in SODIUM CHLORIDE 0.9% 50ML 50 ML IV SCH (16:05)
[2021-01-29] MEDS: ATORVASTATIN 20 MG TAB PO SCH (20:22)
[2021-01-29] MEDS: CYANOCOBALAMIN 1,000 MCG TAB PO SCH (20:22)
[2021-01-29] MEDS: INSULIN GLARGINE 100 UNITS/ML VIAL SC SCH (21:42)
[2021-01-30] VITALS: BP 157/51
[2021-01-30 04:00] VITALS: BP 159/54
[2021-01-30] MEDS: PANTOPRAZOLE SOD 40 MG TABEC PO SCH (05:33)
[2021-01-30] MEDS: INSULIN LISPRO 100 UNIT/1 ML 3ML VIAL SQ SCH (07:30)
[2021-01-30 08:00] VITALS: BP 156/53
[2021-01-30] MEDS: AMLODIPINE BESYLATE 5 MG TAB PO SCH (08:41)
[2021-01-30] MEDS: ATENOLOL 50 MG TAB PO SCH (08:42)
[2021-01-30 09:40] VITALS: BP 156/53
[2021-01-30 09:43] VITALS: BP 156/53
[2021-01-30 11:47] VITALS: BP 146/56
== END 2021-01-30 13:00 | disposition home or self-care (01) | DRG 640 ==
LOC: ER 13:31 → ERHOLD 15:49 → MED/SURG3 18:23 → OBSVTOIN 23:22
PROVIDERS: ADMIT Internal Medicine; ATTEND Internal Medicine
DX: E87.5 Hyperkalemia (principal); N17.0 Acute kidney failure with tubular necrosis; E87.2 Acidosis; I48.91 Unspecified atrial fibrillation; Z79.01 Long term (current) use of anticoagulants; E03.9 Hypothyroidism, unspecified; E86.0 Dehydration; K21.9 Gastro-esophageal reflux disease without esophagitis; G47.30 Sleep apnea, unspecified; Z87.891 Personal history of nicotine dependence; F03.90 Unspecified dementia, unspecified severity, without behavioral disturbance, psychotic disturbance, mood disturbance, and anxiety; K74.60 Unspecified cirrhosis of liver; R91.8 Other nonspecific abnormal finding of lung field; B96.1 Klebsiella pneumoniae [K. pneumoniae] as the cause of diseases classified elsewhere; E11.22 Type 2 diabetes mellitus with diabetic chronic kidney disease; I12.9 Hypertensive chronic kidney disease with stage 1 through stage 4 chronic kidney disease, or unspecified chronic kidney disease; N18.32 Chronic kidney disease, stage 3b; J44.9 Chronic obstructive pulmonary disease, unspecified; T38.3X5A Adverse effect of insulin and oral hypoglycemic [antidiabetic] drugs, initial encounter; Z20.822 Contact with and (suspected) exposure to COVID-19
CPT/HCPCS: 36415; 51700; 70450; 71045; 71250; 76770; 80048; 80053; 80162; 81001; 82550; 82553; 82607; 82746; 82948; 83036; 83540; 83605; 83735; 84100; 84443; 84466; 84484; 85025; 87040; 87086; 87186; 93005; 94640; 99251; 99284; J0696; J1756; J1817; J2150; J3475; J7030; J7040; J7070; J7121; J7799; U0002

== ENCOUNTER 2021-03-14 04:29 | Emergency (ER) | payer MEDICARE, BC ==
[~2021-03-14] VITALS: Ht 166.4 cm; Wt 73.5 kg
[~2021-03-14 04:29] MED LIST changes: +FUROSEMIDE40 MG PO; +INSULIN AS100 UNIT/1 SC; +IRBESARTAN150 MG PO; +TOUJEO MAX300 UNIT/1 SC
[2021-03-14] MEDS ORDERED: CLONIDINE HCL 0.1 MG TAB PO ONE (05:00)
[2021-03-14] MEDS ORDERED: SODIUM CHLORIDE 0.9% 500ML 500 ML IV STA (05:04)
[2021-03-14] MEDS ORDERED: ONDANSETRON HCL INJ 2MG/ML 2ML 2 MG/ML VIAL ONE (05:13)
[2021-03-14] MEDS ORDERED: CLONIDINE HCL 0.1 MG TAB ONE (05:13)
[2021-03-14] MEDS ORDERED: FAMOTIDINE 20 MG/2 ML VIAL IV ONE ×2 (05:13→05:15)
[2021-03-14] MEDS ORDERED: SODIUM CHLORIDE 0.9% 1000ML 1,000 ML ONE (05:13)
[2021-03-14] MEDS ORDERED: ONDANSETRON HCL INJ 2MG/ML 2ML 2 MG/ML VIAL IV ONE (05:15)
[2021-03-14] MEDS ORDERED: CEFTRIAXONE 1 GM VIAL IV ONE (05:15)
[2021-03-14] MEDS ORDERED: CEFTRIAXONE 1 GM in SODIUM CHLORIDE 0.9% 50ML 50 ML IV ONE (05:15)
[2021-03-14] MEDS ORDERED: SODIUM CHLORIDE 0.9% 50ML 50 ML ONE (06:03)
[2021-03-14] MEDS ORDERED: CEFTRIAXONE 1 GM VIAL ONE (06:03)
[2021-03-14] MEDS ORDERED: ONDANSETRON ODT4 MG PO (06:23)
[2021-03-14] MEDS ORDERED: CEFDINIR300 MG PO (06:23)
[2021-03-14 06:32] VITALS: BP 174/66
== END 2021-03-14 06:32 | disposition home or self-care (01) ==
LOC: FSED 04:56
DX: N30.01 Acute cystitis with hematuria (principal); N19 Unspecified kidney failure; R10.30 Lower abdominal pain, unspecified; E11.65 Type 2 diabetes mellitus with hyperglycemia; I10 Essential (primary) hypertension; J44.9 Chronic obstructive pulmonary disease, unspecified; E03.9 Hypothyroidism, unspecified; K21.9 Gastro-esophageal reflux disease without esophagitis; D64.9 Anemia, unspecified; J45.909 Unspecified asthma, uncomplicated; Z87.19 Personal history of other diseases of the digestive system; Z98.0 Intestinal bypass and anastomosis status
CPT/HCPCS: 74176; 80053; 81003; 85025; 87086; 87186; 96374; 96376; 99284; J0696; J2405; J7030

== ENCOUNTER 2021-03-31 05:44 | Inpatient (IN) | payer MEDICARE, BC ==
[~2021-03-31] VITALS: Ht 166.4 cm; Wt 73.5 kg
[~2021-03-31 05:44] MED LIST changes: +CEFDINIR300 MG PO; +ONDANSETRON ODT4 MG PO
[2021-03-31] MEDS ORDERED: NALOXONE HCL 2MG/2 ML SYRINGE ONE (06:06)
[2021-03-31 06:23] LABS: BASOPHILS # (AUTO) 0.1 (0.0-0.1); BASOPHILS % 1.1 % (0.0-1.0); EOSINOPHILS # (AUTO) 0.1 (0.0-0.4); EOSINOPHILS % 1.7 % (0.0-6.0); HEMATOCRIT 30.6 % (34.2-44.1); HEMOGLOBIN 10.2 g/dL (12.0-16.0); LYMPHOCYTES % 20.7 % (18.0-39.1); MEAN CORPUSCULAR HGB CONC 33.3 g/dL (31-35); MONOCYTES # (AUTO) 0.6 (0.2-0.8); MONOCYTES % 13.9 % (4.4-11.3); NEUTROPHILS # (AUTO) 2.9 (2.1-6.9); NEUTROPHILS % 62.2 % (38.7-80.0); PLATELET COUNT 71 x10e3/uL (140-360); RED CELL DISTRIBUTION WIDTH 14.4 % (11.7-14.4)
[2021-03-31 06:24] LABS: CLARITY,URINE SL CLOUDY (CLEAR); COLOR,URINE YELLOW (YELLOW); KETONES,URINE NEGATIVE (NEGATIVE); LEUKOCYTE ESTERASE ,URINE NEGATIVE (NEGATIVE); NITRITE,URINE NEGATIVE (NEGATIVE); PROTEIN,URINE DIPSTICK 1+ (NEGATIVE); URINE UROBILINOGEN 0.2 mg/dL (0.2 - 1)
[2021-03-31 06:29] LABS: AMPHETAMINES SCREEN,URINE NEGATIVE (NEGATIVE); BENZODIAZEPINES SCREEN,URINE NEGATIVE (NEGATIVE); PHENCYCLIDINE SCREEN,URINE NEGATIVE (NEGATIVE)
[2021-03-31 06:43] LABS: ALBUMIN 3.4 g/dL (3.5-5.0); ALBUMIN/GLOBULIN RATIO 0.9 (0.8-2.0); ANION GAP 17.8 mmol/L (8-16); BACTERIA,URINE RARE /HPF; CALCIUM 9.5 mg/dL (8.4-10.2); CREATININE, SERUM 2.32 mg/dL (0.57-1.11); EPITHELIAL CELLS,URINE MANY /LPF; POTASSIUM 3.8 mmol/L (3.5-5.1); RBC,URINE 0-5 /HPF (0-5)
[2021-03-31] MEDS ORDERED: LACTULOSE SYRUP 20 GM/30 ML UDC NG ONE (07:15)
[2021-03-31 07:20] LABS: SALICYLATE < 5.0 mg/dL (0-30)
[2021-03-31 07:27] LABS: ABG HCO3 29 mmol/L (22-26); ABG PCO2 37 mmHg (35-45); ABG PH 7.51 (7.35-7.45); ABG PO2 82 mmHg (80-105); ABG TCO2 31
[2021-03-31] MEDS ORDERED: NALOXONE HCL 2MG/2 ML SYRINGE IV ONE (07:30)
[2021-03-31] MEDS ORDERED: HYDRALAZINE HCL 20 MG/ML VIAL IV STA (07:51)
[2021-03-31 07:52] LABS: THYROID STIMULATING HORMONE 0.574 uIU/mL (0.350-4.940)
[2021-03-31] MEDS ORDERED: HYDRALAZINE HCL 20 MG/ML VIAL ONE (07:57)
[2021-03-31] MEDS ORDERED: SODIUM CHLORIDE 0.9% 500ML 500 ML IV ONE (08:00)
[2021-03-31] MEDS ORDERED: HYDRALAZINE HCL 20 MG/ML VIAL IV ONE (08:00)
[2021-03-31] MEDS ORDERED: LACTULOSE SYRUP 20 GM/30 ML UDC RC ONE ×2 (08:30→18:00)
[2021-03-31 08:46] LABS: INR 1.08; PROTHROMBIN TIME 14.9 seconds (11.9-14.5)
[2021-03-31 14:03] VITALS: BP 138/64
[2021-03-31 15:07] VITALS: BP 138/64
[2021-03-31 15:27] VITALS: BP 138/64
[2021-03-31] MEDS ORDERED: DEXTROSE 50% SYRINGE 50 ML IV PRN (15:30)
[2021-03-31 16:00] VITALS: BP 169/92
[2021-03-31] MEDS: INSULIN LISPRO 100 UNIT/1 ML 3ML VIAL SQ SCH ×2 (16:34→21:00)
[2021-03-31] MEDS: PANTOPRAZOLE SOD 40 MG TABEC PO SCH (16:34)
[2021-03-31] MEDS: CEFTRIAXONE 1 GM in SODIUM CHLORIDE 0.9% 50ML 50 ML IV SCH (16:34)
[2021-03-31] MEDS: RIFAXIMIN 550 MG TABLET PO SCH (16:36)
[2021-03-31] MEDS: ATENOLOL 50 MG TAB PO SCH (16:36)
[2021-03-31] MEDS ORDERED: INFLUENZA VIRUS VAC SPLIT INJ 0.5 ML SYR IM ONE (17:00)
[2021-03-31] MEDS: ALBUTEROL/IPRATROPIUM 3 ML NEB NEB SCH (18:50)
[2021-03-31 20:00] VITALS: BP 110/83
[2021-03-31 21:00] VITALS: BP 110/83
[2021-03-31] MEDS: INSULIN GLARGINE 100 UNITS/ML VIAL SQ SCH (21:00)
[2021-03-31] MEDS: CYANOCOBALAMIN 1,000 MCG TAB PO SCH (21:00)
[2021-03-31] MEDS ORDERED: INSULIN GLARGINE HUM REC ANLOG 40 UNIT SC SCH (21:00)
[2021-03-31] MEDS ORDERED: INSULIN GLARGINE 100 UNITS/ML VIAL SQ SCH (21:00)
[2021-03-31] MEDS ORDERED: ATORVASTATIN 20 MG TAB PO SCH (21:00)
[2021-03-31] MEDS ORDERED: [UNRECOGNIZED DRUG - OTHER] SC SCH (21:00)
[2021-04-01] VITALS (8 sets, daily range): BP systolic 140–167; BP diastolic 44–80
[2021-04-01] MEDS: ALBUTEROL/IPRATROPIUM 3 ML NEB NEB SCH ×3 (00:55→13:13)
[2021-04-01 05:57] LABS: BASOPHILS # (AUTO) 0.1 (0.0-0.1); BASOPHILS % 0.6 % (0.0-1.0); EOSINOPHILS # (AUTO) 0.1 (0.0-0.4); EOSINOPHILS % 1.3 % (0.0-6.0); HEMOGLOBIN 10.9 g/dL (12.0-16.0); LYMPHOCYTES # (AUTO) 1.7 (1.0-3.2); LYMPHOCYTES % 16.5 % (18.0-39.1); MEAN CORPUSCULAR HEMOGLOBIN 29.6 pg (28-32); MEAN CORPUSCULAR HGB CONC 32.1 g/dL (31-35); MEAN CORPUSCULAR VOLUME 92.4 fL (81-99); MONOCYTES # (AUTO) 1.3 (0.2-0.8); MONOCYTES % 12.2 % (4.4-11.3); NEUTROPHILS # (AUTO) 7.2 (2.1-6.9); PLATELET COUNT 63 x10e3/uL (140-360); RED BLOOD COUNT 3.68 x10e6/uL (3.6-5.1); RED CELL DISTRIBUTION WIDTH 14.8 % (11.7-14.4)
[2021-04-01 06:23] LABS: INR 1.12; PROTHROMBIN TIME 15.3 seconds (11.9-14.5)
[2021-04-01 06:32] LABS: ANION GAP 15.2 mmol/L (8-16); CALCIUM 9.9 mg/dL (8.4-10.2); CREATININE, SERUM 1.65 mg/dL (0.57-1.11); POTASSIUM 3.2 mmol/L (3.5-5.1)
[2021-04-01 07:14] LABS: FERRITIN 42.68 ng/mL (4.63-204.00)
[2021-04-01] MEDS: INSULIN LISPRO 100 UNIT/1 ML 3ML VIAL SQ SCH ×4 (07:30→20:31)
[2021-04-01] MEDS ORDERED: IRBESARTAN 150 MG TAB PO SCH (09:00)
[2021-04-01] MEDS ORDERED: DIGOXIN 0.125 MG TAB PO SCH (09:00)
[2021-04-01] MEDS: LACTULOSE SYRUP 20 GM/30 ML UDC PO SCH ×3 (09:00→20:30)
[2021-04-01] MEDS: DEXTROSE 5% 1,000 ML IV SCH ×2 (09:30→20:49)
[2021-04-01] MEDS ORDERED: POTASSIUM CHLORIDE 20MEQ/15ML UDC NG PRN (09:30)
[2021-04-01] MEDS ORDERED: POTASSIUM CHLORIDE 20MEQ/100ML 100 ML IV ONE (10:00)
[2021-04-01] MEDS ORDERED: LEVOTHYROXINE SODIUM 100 MCG/VIAL IV ONE (10:00)
[2021-04-01] MEDS ORDERED: FUROSEMIDE INJ 10 MG/ML 4 ML VIAL IV ONE (15:45)
[2021-04-01] MEDS: ATENOLOL 50 MG TAB PO SCH ×2 (16:00→17:00)
[2021-04-01] MEDS: RIFAXIMIN 550 MG TABLET PO SCH ×2 (16:00→17:00)
[2021-04-01] MEDS: PANTOPRAZOLE SOD 40 MG TABEC PO SCH ×2 (16:00→16:30)
[2021-04-01] MEDS ORDERED: SODIUM CHLORIDE 0.9% 50ML 50 ML ONE (16:12)
[2021-04-01 16:40] LABS: CREATININE,URINE RANDOM 87.23 mg/dL (47-110)
[2021-04-01] MEDS ORDERED: BUMETANIDE INJ 0.25MG/ML 4ML VIAL IV ONE (16:45)
[2021-04-01] MEDS: CEFTRIAXONE 1 GM in SODIUM CHLORIDE 0.9% 50ML 50 ML IV SCH (17:00)
[2021-04-01] MEDS: CYANOCOBALAMIN 1,000 MCG TAB PO SCH (20:30)
[2021-04-01] MEDS: INSULIN GLARGINE 100 UNITS/ML VIAL SQ SCH (20:37)
[2021-04-02] VITALS (8 sets, daily range): BP systolic 155–171; BP diastolic 47–53
[2021-04-02] MEDS: ALBUTEROL/IPRATROPIUM 3 ML NEB NEB SCH ×4 (03:00→18:05)
[2021-04-02 04:57] LABS: BASOPHILS % 0.6 % (0.0-1.0); EOSINOPHILS # (AUTO) 0.1 (0.0-0.4); EOSINOPHILS % 2.2 % (0.0-6.0); HEMATOCRIT 29.5 % (34.2-44.1); HEMOGLOBIN 9.9 g/dL (12.0-16.0); LYMPHOCYTES # (AUTO) 1.9 (1.0-3.2); LYMPHOCYTES % 29.7 % (18.0-39.1); MEAN CORPUSCULAR HEMOGLOBIN 30.6 pg (28-32); MEAN CORPUSCULAR HGB CONC 33.6 g/dL (31-35); MONOCYTES % 14.9 % (4.4-11.3); NEUTROPHILS # (AUTO) 3.4 (2.1-6.9); NEUTROPHILS % 52.3 % (38.7-80.0); PLATELET COUNT 55 x10e3/uL (140-360); RED BLOOD COUNT 3.24 x10e6/uL (3.6-5.1); RED CELL DISTRIBUTION WIDTH 14.8 % (11.7-14.4)
[2021-04-02 05:41] LABS: ALBUMIN 2.6 g/dL (3.5-5.0); ALBUMIN/GLOBULIN RATIO 0.8 (0.8-2.0); ANION GAP 16.2 mmol/L (8-16); CALCIUM 8.7 mg/dL (8.4-10.2); MAGNESIUM 1.8 MG/DL (1.3-2.1); PHOSPHORUS 2.8 MG/DL (2.3-4.7); POTASSIUM 3.2 mmol/L (3.5-5.1)
[2021-04-02] MEDS ORDERED: LEVOTHYROXINE SODIUM 75 MCG TAB PO SCH (06:00)
[2021-04-02 06:04] LABS: CREATININE, SERUM 1.72 mg/dL (0.57-1.11)
[2021-04-02] MEDS: DEXTROSE 5% 1,000 ML IV SCH ×2 (06:27→23:29)
[2021-04-02] MEDS: PANTOPRAZOLE SOD 40 MG TABEC PO SCH ×2 (07:30→16:30)
[2021-04-02] MEDS: INSULIN LISPRO 100 UNIT/1 ML 3ML VIAL SQ SCH ×4 (07:30→21:34)
[2021-04-02] MEDS: LACTULOSE SYRUP 20 GM/30 ML UDC PO SCH ×3 (09:00→21:26)
[2021-04-02] MEDS: ATENOLOL 50 MG TAB PO SCH ×2 (09:00→17:00)
[2021-04-02] MEDS: RIFAXIMIN 550 MG TABLET PO SCH ×2 (09:00→17:00)
[2021-04-02] MEDS ORDERED: KCL 20 MEQ PACKET/ ORAL SOLN NG PRN (10:00)
[2021-04-02] MEDS: CEFTRIAXONE 1 GM in SODIUM CHLORIDE 0.9% 50ML 50 ML IV SCH (17:00)
[2021-04-02] MEDS: CYANOCOBALAMIN 1,000 MCG TAB PO SCH (21:26)
[2021-04-02] MEDS: INSULIN GLARGINE 100 UNITS/ML VIAL SQ SCH (21:33)
[2021-04-03] VITALS (8 sets, daily range): BP systolic 154–177; BP diastolic 50–60
[2021-04-03] MEDS: ALBUTEROL/IPRATROPIUM 3 ML NEB NEB SCH ×4 (01:00→18:43)
[2021-04-03] MEDS: PANTOPRAZOLE SOD 40 MG TABEC PO SCH ×2 (09:27→15:55)
[2021-04-03] MEDS: INSULIN LISPRO 100 UNIT/1 ML 3ML VIAL SQ SCH ×4 (09:29→21:40)
[2021-04-03] MEDS: LACTULOSE SYRUP 20 GM/30 ML UDC PO SCH ×3 (09:29→21:34)
[2021-04-03] MEDS: ATENOLOL 50 MG TAB PO SCH ×2 (09:30→18:02)
[2021-04-03] MEDS: RIFAXIMIN 550 MG TABLET PO SCH ×2 (09:30→18:02)
[2021-04-03] MEDS ORDERED: BUMETANIDE INJ 0.25MG/ML 4ML VIAL IV ONE (11:15)
[2021-04-03] MEDS ORDERED: POTASSIUM CHLORIDE 20 MEQ TAB CR PO ONE (11:15)
[2021-04-03] MEDS ORDERED: POTASSIUM CHLORIDE 20MEQ/100ML 100 ML IV ONE (11:30)
[2021-04-03] MEDS: CEFTRIAXONE 1 GM in SODIUM CHLORIDE 0.9% 50ML 50 ML IV SCH (18:01)
[2021-04-03] MEDS: CYANOCOBALAMIN 1,000 MCG TAB PO SCH (21:34)
[2021-04-03] MEDS: INSULIN GLARGINE 100 UNITS/ML VIAL SQ SCH (21:40)
[2021-04-04] VITALS (9 sets, daily range): BP systolic 142–169; BP diastolic 48–59
[2021-04-04] MEDS: ALBUTEROL/IPRATROPIUM 3 ML NEB NEB SCH ×4 (01:45→18:35)
[2021-04-04] MEDS: INSULIN LISPRO 100 UNIT/1 ML 3ML VIAL SQ SCH ×4 (07:30→20:54)
[2021-04-04] MEDS: ATENOLOL 50 MG TAB PO SCH ×2 (09:41→18:09)
[2021-04-04] MEDS: RIFAXIMIN 550 MG TABLET PO SCH ×2 (09:41→18:09)
[2021-04-04] MEDS: PANTOPRAZOLE SOD 40 MG TABEC PO SCH ×2 (09:41→15:59)
[2021-04-04] MEDS: FUROSEMIDE 20 MG TAB PO SCH (13:06)
[2021-04-04] MEDS: CEFTRIAXONE 1 GM in SODIUM CHLORIDE 0.9% 50ML 50 ML IV SCH (18:08)
[2021-04-04] MEDS: CYANOCOBALAMIN 1,000 MCG TAB PO SCH (20:50)
[2021-04-04] MEDS: INSULIN GLARGINE 100 UNITS/ML VIAL SQ SCH (20:53)
[2021-04-05] VITALS (8 sets, daily range): BP systolic 135–157; BP diastolic 46–62
[2021-04-05] MEDS: ALBUTEROL/IPRATROPIUM 3 ML NEB NEB SCH ×4 (00:50→18:50)
[2021-04-05] MEDS ORDERED: INFLUENZA VIRUS VAC SPLIT INJ 0.5 ML SYR IM ONE (03:00)
[2021-04-05 05:21] LABS: ANION GAP 13.3 mmol/L (8-16); CALCIUM 8.7 mg/dL (8.4-10.2); CREATININE, SERUM 1.53 mg/dL (0.57-1.11); POTASSIUM 3.3 mmol/L (3.5-5.1)
[2021-04-05] MEDS: INSULIN LISPRO 100 UNIT/1 ML 3ML VIAL SQ SCH ×4 (07:30→21:33)
[2021-04-05] MEDS: PANTOPRAZOLE SOD 40 MG TABEC PO SCH ×2 (08:06→16:36)
[2021-04-05] MEDS: ATENOLOL 50 MG TAB PO SCH ×2 (09:00→16:37)
[2021-04-05] MEDS: RIFAXIMIN 550 MG TABLET PO SCH ×2 (09:00→16:37)
[2021-04-05] MEDS: LACTULOSE SYRUP 20 GM/30 ML UDC PO SCH (09:00)
[2021-04-05] MEDS: CEFTRIAXONE 1 GM in SODIUM CHLORIDE 0.9% 50ML 50 ML IV SCH (16:36)
[2021-04-05] MEDS: CYANOCOBALAMIN 1,000 MCG TAB PO SCH (21:21)
[2021-04-05] MEDS: INSULIN GLARGINE 100 UNITS/ML VIAL SQ SCH (21:33)
[2021-04-06 00:57] VITALS: BP 153/50
[2021-04-06] MEDS: ALBUTEROL/IPRATROPIUM 3 ML NEB NEB SCH ×2 (01:00→01:46)
[2021-04-06 05:16] VITALS: BP 139/43
[2021-04-06 07:16] LABS: ANION GAP 12.5 mmol/L (8-16); CREATININE, SERUM 1.38 mg/dL (0.57-1.11); POTASSIUM 3.5 mmol/L (3.5-5.1)
[2021-04-06] MEDS: INSULIN LISPRO 100 UNIT/1 ML 3ML VIAL SQ SCH ×2 (07:30→12:00)
[2021-04-06] MEDS: FUROSEMIDE 20 MG TAB PO SCH (08:00)
[2021-04-06] MEDS: RIFAXIMIN 550 MG TABLET PO SCH (08:00)
[2021-04-06] MEDS: PANTOPRAZOLE SOD 40 MG TABEC PO SCH (08:00)
[2021-04-06] MEDS: LACTULOSE SYRUP 20 GM/30 ML UDC PO SCH (08:00)
[2021-04-06] MEDS: ATENOLOL 50 MG TAB PO SCH (08:00)
[2021-04-06 08:17] VITALS: BP 157/50
[2021-04-06 08:43] VITALS: BP 157/50
[2021-04-06 11:41] VITALS: BP 156/57
== END 2021-04-06 12:14 | disposition home or self-care (01) | DRG 441 ==
LOC: ER 05:55 → ERHOLD 10:10 → MED/SURG2 13:02
PROVIDERS: ADMIT Internal Medicine Pulmonary Disease; ATTEND Internal Medicine Pulmonary Disease
DX: K75.81 Nonalcoholic steatohepatitis (NASH) (principal); K72.00 Acute and subacute hepatic failure without coma; N17.9 Acute kidney failure, unspecified; K74.60 Unspecified cirrhosis of liver; I48.91 Unspecified atrial fibrillation; D63.8 Anemia in other chronic diseases classified elsewhere; E11.22 Type 2 diabetes mellitus with diabetic chronic kidney disease; N18.32 Chronic kidney disease, stage 3b; E11.21 Type 2 diabetes mellitus with diabetic nephropathy; G47.33 Obstructive sleep apnea (adult) (pediatric); E87.6 Hypokalemia; E87.70 Fluid overload, unspecified; E03.9 Hypothyroidism, unspecified; I50.9 Heart failure, unspecified; Z87.440 Personal history of urinary (tract) infections; Z88.2 Allergy status to sulfonamides; Z88.8 Allergy status to other drugs, medicaments and biological substances; Z20.822 Contact with and (suspected) exposure to COVID-19
CPT/HCPCS: 36415; 36600; 70450; 71045; 74018; 74176; 74470; 76705; 80048; 80053; 80162; 80307; 80329; 81001; 82140; 82533; 82570; 82607; 82728; 82746; 82805; 82948; 83540; 83605; 83690; 83735; 83880; 84100; 84300; 84443; 84466; 84550; 85025; 85045; 85610; 86039; 87040; 87086; 87186; 93005; 94640; 94660; 94799; 96372; 99285; J0360; J0696; J1815; J2310; J3480; J7040; J7070; U0002

== ENCOUNTER 2021-05-06 09:09 | Inpatient (IN) | payer MEDICARE, BC ==
[~2021-05-06] VITALS: Ht 165.1 cm; Wt 68.0 kg
[2021-05-06 10:13] LABS: BASOPHILS # (AUTO) 0.1 (0.0-0.1); BASOPHILS % 0.9 % (0.0-1.0); EOSINOPHILS # (AUTO) 0.1 (0.0-0.4); EOSINOPHILS % 2.3 % (0.0-6.0); HEMATOCRIT 32.1 % (34.2-44.1); HEMOGLOBIN 10.7 g/dL (12.0-16.0); LYMPHOCYTES # (AUTO) 1.6 (1.0-3.2); LYMPHOCYTES % 29.4 % (18.0-39.1); MEAN CORPUSCULAR HEMOGLOBIN 29.8 pg (28-32); MEAN CORPUSCULAR HGB CONC 33.3 g/dL (31-35); MEAN CORPUSCULAR VOLUME 89.4 fL (81-99); MONOCYTES # (AUTO) 1.1 (0.2-0.8); NEUTROPHILS # (AUTO) 2.7 (2.1-6.9); NEUTROPHILS % 48.2 % (38.7-80.0); PLATELET COUNT 81 x10e3/uL (140-360); RED BLOOD COUNT 3.59 x10e6/uL (3.6-5.1); RED CELL DISTRIBUTION WIDTH 13.7 % (11.7-14.4)
[2021-05-06 10:25] LABS: CLARITY,URINE CLEAR (CLEAR); COLOR,URINE YELLOW (YELLOW); KETONES,URINE NEGATIVE (NEGATIVE); LEUKOCYTE ESTERASE ,URINE NEGATIVE (NEGATIVE); NITRITE,URINE NEGATIVE (NEGATIVE); PROTEIN,URINE DIPSTICK NEGATIVE (NEGATIVE); URINE UROBILINOGEN 0.2 mg/dL (0.2 - 1)
[2021-05-06 10:25] LABS: INR 1.27; PROTHROMBIN TIME 16.9 seconds (11.9-14.5)
[2021-05-06 10:26] LABS: PARTIAL THROMBOPLASTIN TIME 30.5 seconds (23.8-35.5)
[2021-05-06 10:31] LABS: EPITHELIAL CELLS,URINE RARE /LPF; MUCUS,URINE RARE (RARE); RBC,URINE 0-5 /HPF (0-5); WBC,URINE (MAN) 0-5 /HPF (0-5)
[2021-05-06 10:36] LABS: ALBUMIN 3.2 g/dL (3.5-5.0); ANION GAP 17.6 mmol/L (8-16); CALCIUM 9.5 mg/dL (8.4-10.2); CREATININE, SERUM 3.51 mg/dL (0.57-1.11); MAGNESIUM 2.3 MG/DL (1.3-2.1); POTASSIUM 3.6 mmol/L (3.5-5.1)
[2021-05-06 10:42] LABS: CREATINE KINASE MB 3.5 ng/mL (0-5.0)
[2021-05-06] MEDS ORDERED: ONDANSETRON HCL INJ 2MG/ML 2ML 2 MG/ML VIAL IV PRN (11:00)
[2021-05-06] MEDS ORDERED: SODIUM CHLORIDE 0.9% 500ML 500 ML IV ONE (11:00)
[2021-05-06] MEDS ORDERED: DEXTROSE 50% SYRINGE 50 ML IV PRN (11:15)
[2021-05-06] MEDS: INSULIN LISPRO 100 UNIT/1 ML 3ML VIAL SQ SCH ×3 (12:50→21:41)
[2021-05-06] MEDS: LACTULOSE SYRUP 20 GM/30 ML UDC PO SCH ×2 (12:50→18:17)
[2021-05-06] MEDS: SODIUM CHLORIDE 0.9% 1000ML 1,000 ML IV SCH ×2 (12:50→21:34)
[2021-05-06 16:42] VITALS: BP 138/39
[2021-05-06 16:43] VITALS: BP 138/39
[2021-05-06 18:12] VITALS: BP 138/39
[2021-05-06 19:27] LABS: CREATINE KINASE MB 3.5 ng/mL (0-5.0)
[2021-05-06 20:00] VITALS: BP 123/46
[2021-05-06 20:32] VITALS: BP 123/76
[2021-05-07] VITALS (8 sets, daily range): BP systolic 145–161; BP diastolic 48–58
[2021-05-07] MEDS: LACTULOSE SYRUP 20 GM/30 ML UDC PO SCH ×4 (00:17→18:04)
[2021-05-07 05:04] LABS: BASOPHILS % 0.7 % (0.0-1.0); EOSINOPHILS # (AUTO) 0.1 (0.0-0.4); EOSINOPHILS % 1.4 % (0.0-6.0); HEMATOCRIT 29.7 % (34.2-44.1); HEMOGLOBIN 10.1 g/dL (12.0-16.0); LYMPHOCYTES # (AUTO) 1.2 (1.0-3.2); LYMPHOCYTES % 21.4 % (18.0-39.1); MEAN CORPUSCULAR HEMOGLOBIN 30.1 pg (28-32); MEAN CORPUSCULAR VOLUME 88.4 fL (81-99); MONOCYTES # (AUTO) 0.9 (0.2-0.8); MONOCYTES % 15.7 % (4.4-11.3); NEUTROPHILS # (AUTO) 3.4 (2.1-6.9); NEUTROPHILS % 60.4 % (38.7-80.0); PLATELET COUNT 70 x10e3/uL (140-360); RED BLOOD COUNT 3.36 x10e6/uL (3.6-5.1); RED CELL DISTRIBUTION WIDTH 13.8 % (11.7-14.4)
[2021-05-07 05:38] LABS: ALBUMIN 3.2 g/dL (3.5-5.0); ANION GAP 16.4 mmol/L (8-16); CALCIUM 10.9 mg/dL (8.4-10.2); CREATININE, SERUM 2.59 mg/dL (0.57-1.11); POTASSIUM 3.4 mmol/L (3.5-5.1)
[2021-05-07 07:02] LABS: CREATINE KINASE MB 3.1 ng/mL (0-5.0)
[2021-05-07] MEDS: INSULIN LISPRO 100 UNIT/1 ML 3ML VIAL SQ SCH ×4 (08:01→21:40)
[2021-05-07] MEDS: SODIUM CHLORIDE 0.9% 1000ML 1,000 ML IV SCH (08:24)
[2021-05-07] MEDS: PANTOPRAZOLE SOD 40 MG TABEC PO SCH (08:54)
[2021-05-07] MEDS ORDERED: POTASSIUM CHLORIDE 20MEQ/100ML 200 ML IV ONE (09:30)
[2021-05-07] MEDS: DEXTROSE 5% 1,000 ML IV SCH ×2 (10:29→19:49)
[2021-05-07] MEDS ORDERED: ATENOLOL 50 MG TAB PO SCH (16:00)
[2021-05-07] MEDS: RIFAXIMIN 550 MG TABLET PO SCH (16:58)
[2021-05-07] MEDS: ATORVASTATIN 20 MG TAB PO SCH (21:36)
[2021-05-08] VITALS (9 sets, daily range): BP systolic 127–161; BP diastolic 38–54
[2021-05-08] MEDS: LACTULOSE SYRUP 20 GM/30 ML UDC PO SCH ×4 (00:31→21:15)
[2021-05-08 03:26] LABS: CLARITY,URINE CLEAR (CLEAR); COLOR,URINE YELLOW (YELLOW); KETONES,URINE NEGATIVE (NEGATIVE); LEUKOCYTE ESTERASE ,URINE NEGATIVE (NEGATIVE); NITRITE,URINE NEGATIVE (NEGATIVE); PROTEIN,URINE DIPSTICK 1+ (NEGATIVE); URINE UROBILINOGEN 0.2 mg/dL (0.2 - 1)
[2021-05-08 03:35] LABS: BACTERIA,URINE MANY /HPF; EPITHELIAL CELLS,URINE FEW /LPF; RBC,URINE 0-5 /HPF (0-5); WBC,URINE (MAN) 0-5 /HPF (0-5)
[2021-05-08 03:43] LABS: CREATININE,URINE RANDOM 77.39 mg/dL (47-110); SODIUM,URINE 37 mmol/L
[2021-05-08 05:02] LABS: BASOPHILS # (AUTO) 0.1 (0.0-0.1); BASOPHILS % 0.4 % (0.0-1.0); EOSINOPHILS # (AUTO) 0.1 (0.0-0.4); EOSINOPHILS % 0.7 % (0.0-6.0); HEMATOCRIT 35.3 % (34.2-44.1); HEMOGLOBIN 11.5 g/dL (12.0-16.0); LYMPHOCYTES # (AUTO) 1.3 (1.0-3.2); MEAN CORPUSCULAR HEMOGLOBIN 29.8 pg (28-32); MEAN CORPUSCULAR HGB CONC 32.6 g/dL (31-35); MEAN CORPUSCULAR VOLUME 91.5 fL (81-99); MONOCYTES # (AUTO) 2.1 (0.2-0.8); MONOCYTES % 13.4 % (4.4-11.3); NEUTROPHILS # (AUTO) 12.1 (2.1-6.9); NEUTROPHILS % 77.1 % (38.7-80.0); PLATELET COUNT 76 x10e3/uL (140-360); RED BLOOD COUNT 3.86 x10e6/uL (3.6-5.1); RED CELL DISTRIBUTION WIDTH 14.6 % (11.7-14.4)
[2021-05-08] MEDS: DEXTROSE 5% 1,000 ML IV SCH ×2 (05:14→14:58)
[2021-05-08 05:43] LABS: ALBUMIN 2.8 g/dL (3.5-5.0); ALBUMIN/GLOBULIN RATIO 0.9 (0.8-2.0); ANION GAP 17.7 mmol/L (8-16); CALCIUM 8.9 mg/dL (8.4-10.2); CREATININE, SERUM 2.27 mg/dL (0.57-1.11); MAGNESIUM 2.2 MG/DL (1.3-2.1); PHOSPHORUS 3.1 MG/DL (2.3-4.7); POTASSIUM 3.7 mmol/L (3.5-5.1)
[2021-05-08] MEDS: INSULIN LISPRO 100 UNIT/1 ML 3ML VIAL SQ SCH ×4 (07:30→21:21)
[2021-05-08] MEDS: PANTOPRAZOLE SOD 40 MG TABEC PO SCH (07:30)
[2021-05-08] MEDS ORDERED: FUROSEMIDE 40 MG TAB PO SCH (09:00)
[2021-05-08] MEDS: IRBESARTAN 150 MG TAB PO SCH (09:00)
[2021-05-08] MEDS ORDERED: ONDANSETRON HCL 4 MG ORAL DISINTEGRATING TAB PO PRN (09:00)
[2021-05-08] MEDS: RIFAXIMIN 550 MG TABLET PO SCH ×2 (09:00→17:00)
[2021-05-08] MEDS: ATENOLOL 50 MG TAB PO SCH ×2 (12:00→21:00)
[2021-05-08] MEDS ORDERED: DEXTROSE 50% SYRINGE 50 ML IV PRN ×2 (14:30)
[2021-05-08] MEDS: ATORVASTATIN 20 MG TAB PO SCH (21:15)
[2021-05-09] VITALS (7 sets, daily range): BP systolic 133–143; BP diastolic 37–58
[2021-05-09] MEDS: DEXTROSE 5% 1,000 ML IV SCH ×2 (01:30→12:12)
[2021-05-09] MEDS: LACTULOSE SYRUP 20 GM/30 ML UDC PO SCH ×3 (06:00→22:00)
[2021-05-09 06:11] LABS: BASOPHILS % 0.3 % (0.0-1.0); EOSINOPHILS # (AUTO) 0.3 (0.0-0.4); EOSINOPHILS % 3.2 % (0.0-6.0); HEMATOCRIT 29.1 % (34.2-44.1); HEMOGLOBIN 9.6 g/dL (12.0-16.0); LYMPHOCYTES # (AUTO) 2.1 (1.0-3.2); LYMPHOCYTES % 23.2 % (18.0-39.1); MEAN CORPUSCULAR VOLUME 90.9 fL (81-99); MONOCYTES # (AUTO) 1.5 (0.2-0.8); NEUTROPHILS # (AUTO) 5.1 (2.1-6.9); PLATELET COUNT 57 x10e3/uL (140-360); RED CELL DISTRIBUTION WIDTH 14.5 % (11.7-14.4)
[2021-05-09 06:37] LABS: ALBUMIN 2.5 g/dL (3.5-5.0); ALBUMIN/GLOBULIN RATIO 0.9 (0.8-2.0); ANION GAP 12.3 mmol/L (8-16); CALCIUM 8.1 mg/dL (8.4-10.2); CREATININE, SERUM 2.02 mg/dL (0.57-1.11); POTASSIUM 3.3 mmol/L (3.5-5.1)
[2021-05-09] MEDS: PANTOPRAZOLE SOD 40 MG TABEC PO SCH (07:30)
[2021-05-09] MEDS: INSULIN LISPRO 100 UNIT/1 ML 3ML VIAL SQ SCH ×4 (08:30→20:50)
[2021-05-09] MEDS: RIFAXIMIN 550 MG TABLET PO SCH ×2 (08:36→16:42)
[2021-05-09] MEDS: IRBESARTAN 150 MG TAB PO SCH (08:36)
[2021-05-09] MEDS: ATENOLOL 50 MG TAB PO SCH ×2 (09:00→20:17)
[2021-05-09] MEDS ORDERED: DEXTROSE 5% 1,000 ML IV SCH (15:30)
[2021-05-09] MEDS ORDERED: POTASSIUM CHLORIDE 20 MEQ TAB CR PO ONE (16:30)
[2021-05-09] MEDS ORDERED: POTASSIUM CHLORIDE 20 MEQ TAB CR PO SCH (17:00)
[2021-05-09] MEDS: ATORVASTATIN 20 MG TAB PO SCH (20:59)
[2021-05-10] VITALS (8 sets, daily range): BP systolic 129–148; BP diastolic 45–76
[2021-05-10] MEDS: LACTULOSE SYRUP 20 GM/30 ML UDC PO SCH ×3 (06:12→22:00)
[2021-05-10 06:25] LABS: BASOPHILS % 0.4 % (0.0-1.0); EOSINOPHILS # (AUTO) 0.2 (0.0-0.4); EOSINOPHILS % 3.1 % (0.0-6.0); HEMATOCRIT 27.1 % (34.2-44.1); HEMOGLOBIN 9.2 g/dL (12.0-16.0); LYMPHOCYTES # (AUTO) 1.6 (1.0-3.2); LYMPHOCYTES % 23.8 % (18.0-39.1); MEAN CORPUSCULAR HEMOGLOBIN 29.9 pg (28-32); MEAN CORPUSCULAR HGB CONC 33.9 g/dL (31-35); MONOCYTES # (AUTO) 1.1 (0.2-0.8); MONOCYTES % 16.8 % (4.4-11.3); NEUTROPHILS # (AUTO) 3.7 (2.1-6.9); NEUTROPHILS % 55.6 % (38.7-80.0); RED BLOOD COUNT 3.08 x10e6/uL (3.6-5.1); RED CELL DISTRIBUTION WIDTH 14.4 % (11.7-14.4)
[2021-05-10 06:28] LABS: PLATELET COUNT 47 x10e3/uL (140-360)
[2021-05-10 06:52] LABS: ALBUMIN 2.4 g/dL (3.5-5.0); ALBUMIN/GLOBULIN RATIO 0.9 (0.8-2.0); ANION GAP 13.3 mmol/L (8-16); CALCIUM 8.3 mg/dL (8.4-10.2); CREATININE, SERUM 1.85 mg/dL (0.57-1.11); POTASSIUM 3.3 mmol/L (3.5-5.1)
[2021-05-10] MEDS: PANTOPRAZOLE SOD 40 MG TABEC PO SCH (07:30)
[2021-05-10] MEDS: INSULIN LISPRO 100 UNIT/1 ML 3ML VIAL SQ SCH ×4 (07:30→21:00)
[2021-05-10] MEDS: RIFAXIMIN 550 MG TABLET PO SCH ×2 (09:00→17:00)
[2021-05-10] MEDS: IRBESARTAN 150 MG TAB PO SCH (09:00)
[2021-05-10] MEDS: ATENOLOL 50 MG TAB PO SCH ×2 (09:00→20:50)
[2021-05-10 13:23] LABS: CLARITY,URINE CLEAR (CLEAR); COLOR,URINE YELLOW (YELLOW); KETONES,URINE NEGATIVE (NEGATIVE); LEUKOCYTE ESTERASE ,URINE NEGATIVE (NEGATIVE); NITRITE,URINE NEGATIVE (NEGATIVE); PROTEIN,URINE DIPSTICK TRACE (NEGATIVE); URINE UROBILINOGEN 0.2 mg/dL (0.2 - 1)
[2021-05-10 13:36] LABS: BACTERIA,URINE RARE /HPF; EPITHELIAL CELLS,URINE FEW /LPF; RBC,URINE 0-5 /HPF (0-5); WBC,URINE (MAN) 0-5 /HPF (0-5)
[2021-05-10] MEDS: ATORVASTATIN 20 MG TAB PO SCH (20:50)
[2021-05-11 00:17] VITALS: BP 142/52
[2021-05-11 04:00] VITALS: BP 128/56
[2021-05-11] MEDS: LACTULOSE SYRUP 20 GM/30 ML UDC PO SCH ×2 (05:37→14:06)
[2021-05-11] MEDS: INSULIN LISPRO 100 UNIT/1 ML 3ML VIAL SQ SCH ×2 (08:09→12:01)
[2021-05-11] MEDS: PANTOPRAZOLE SOD 40 MG TABEC PO SCH (08:17)
[2021-05-11 08:18] VITALS: BP 141/48
[2021-05-11] MEDS: IRBESARTAN 150 MG TAB PO SCH (08:18)
[2021-05-11] MEDS: ATENOLOL 50 MG TAB PO SCH (08:18)
[2021-05-11] MEDS: RIFAXIMIN 550 MG TABLET PO SCH (08:18)
[2021-05-11 08:30] VITALS: BP 141/48
[2021-05-11 09:45] LABS: BASOPHILS # (AUTO) 0.1 (0.0-0.1); BASOPHILS % 0.7 % (0.0-1.0); EOSINOPHILS # (AUTO) 0.2 (0.0-0.4); EOSINOPHILS % 2.7 % (0.0-6.0); HEMATOCRIT 31.3 % (34.2-44.1); HEMOGLOBIN 10.5 g/dL (12.0-16.0); LYMPHOCYTES # (AUTO) 1.8 (1.0-3.2); LYMPHOCYTES % 23.2 % (18.0-39.1); MEAN CORPUSCULAR HGB CONC 33.5 g/dL (31-35); MEAN CORPUSCULAR VOLUME 89.4 fL (81-99); MONOCYTES # (AUTO) 1.1 (0.2-0.8); MONOCYTES % 13.9 % (4.4-11.3); NEUTROPHILS # (AUTO) 4.5 (2.1-6.9); NEUTROPHILS % 58.8 % (38.7-80.0); PLATELET COUNT 63 x10e3/uL (140-360); RED CELL DISTRIBUTION WIDTH 14.3 % (11.7-14.4)
[2021-05-11 10:05] LABS: ANION GAP 14.2 mmol/L (8-16); CALCIUM 8.5 mg/dL (8.4-10.2); CREATININE, SERUM 2.05 mg/dL (0.57-1.11); POTASSIUM 3.2 mmol/L (3.5-5.1)
[2021-05-11 12:00] VITALS: BP 150/52
[2021-05-11] MEDS ORDERED: POTASSIUM CHLORIDE 20 MEQ TAB CR PO ONE (12:30)
[2021-05-11] MEDS ORDERED: XIFAXAN550 MG PO (13:35)
== END 2021-05-11 13:59 | disposition home or self-care (01) | DRG 442 ==
LOC: ER 09:34 → ERHOLD 11:10 → MED/SURG 16:27
PROVIDERS: ADMIT Internal Medicine; ATTEND Internal Medicine
DX: K72.90 Hepatic failure, unspecified without coma (principal); N17.9 Acute kidney failure, unspecified; N39.0 Urinary tract infection, site not specified; Z16.24 Resistance to multiple antibiotics; K74.60 Unspecified cirrhosis of liver; E86.0 Dehydration; E11.65 Type 2 diabetes mellitus with hyperglycemia; I12.9 Hypertensive chronic kidney disease with stage 1 through stage 4 chronic kidney disease, or unspecified chronic kidney disease; N18.32 Chronic kidney disease, stage 3b; E11.22 Type 2 diabetes mellitus with diabetic chronic kidney disease; K75.81 Nonalcoholic steatohepatitis (NASH); B18.2 Chronic viral hepatitis C; B95.2 Enterococcus as the cause of diseases classified elsewhere; B96.89 Other specified bacterial agents as the cause of diseases classified elsewhere; Z20.822 Contact with and (suspected) exposure to COVID-19
CPT/HCPCS: 36415; 70450; 71045; 80048; 80053; 81001; 82140; 82550; 82553; 82570; 82948; 83735; 84100; 84300; 84484; 85025; 85610; 85730; 86255; 87086; 87186; 93005; 94799; 96372; 99285; J3480; J7030; J7040; J7070; U0002

== ENCOUNTER 2021-06-11 11:58 | Emergency (ER) | payer MEDICARE, BC ==
[~2021-06-11] VITALS: Ht 165.1 cm; Wt 68.0 kg
[~2021-06-11 11:58] MED LIST changes: +XIFAXAN550 MG PO
[2021-06-11] MEDS ORDERED: SODIUM CHLORIDE 0.9% 1000ML 1,000 ML IV ONE (12:15)
[2021-06-11] MEDS ORDERED: METOLAZONE5 MG PO (12:22)
[2021-06-11] MEDS ORDERED: IRBESARTAN150 MG PO (12:24)
[2021-06-11] MEDS ORDERED: FOLIC ACID0.4 MG PO (12:24)
[2021-06-11] MEDS ORDERED: TOUJEO MAX300 UNIT/1 SC (12:24)
[2021-06-11 12:54] LABS: BASOPHILS # (AUTO) 0.1 (0.0-0.1); BASOPHILS % 1.2 % (0.0-1.0); EOSINOPHILS # (AUTO) 0.1 (0.0-0.4); EOSINOPHILS % 2.7 % (0.0-6.0); HEMOGLOBIN 9.8 g/dL (12.0-16.0); LYMPHOCYTES # (AUTO) 1.3 (1.0-3.2); LYMPHOCYTES % 25.1 % (18.0-39.1); MEAN CORPUSCULAR HEMOGLOBIN 30.8 pg (28-32); MEAN CORPUSCULAR HGB CONC 32.7 g/dL (31-35); MEAN CORPUSCULAR VOLUME 94.3 fL (81-99); MONOCYTES # (AUTO) 0.8 (0.2-0.8); MONOCYTES % 15.2 % (4.4-11.3); NEUTROPHILS # (AUTO) 2.9 (2.1-6.9); NEUTROPHILS % 55.4 % (38.7-80.0); PLATELET COUNT 90 x10e3/uL (140-360); RED BLOOD COUNT 3.18 x10e6/uL (3.6-5.1); RED CELL DISTRIBUTION WIDTH 15.3 % (11.7-14.4)
[2021-06-11 13:13] LABS: ALBUMIN/GLOBULIN RATIO 0.8 (0.8-2.0); ANION GAP 15.1 mmol/L (8-16); CALCIUM 9.4 mg/dL (8.4-10.2); CREATININE, SERUM 2.24 mg/dL (0.57-1.11); POTASSIUM 4.1 mmol/L (3.5-5.1)
[2021-06-11 13:19] LABS: CREATINE KINASE MB 4.8 ng/mL (0-5.0)
[2021-06-11] MEDS ORDERED: INSULIN REGULAR, HUMAN 100 UNIT/1 ML SQ ONE (14:45)
== END 2021-06-11 16:13 | disposition home or self-care (01) ==
LOC: ER 12:00
DX: E11.65 Type 2 diabetes mellitus with hyperglycemia (principal); K76.9 Liver disease, unspecified; Z98.0 Intestinal bypass and anastomosis status
CPT/HCPCS: 36415; 71045; 80053; 80162; 82550; 82553; 82948; 83036; 83880; 84484; 85025; 99283; J1817; J7030

== ENCOUNTER → 2021-07-01 | Day surgery (SDC) | payer MEDICARE, BC ==
[2021-06-29 14:04] LABS: BASOPHILS # (AUTO) 0.1 (0.0-0.1); BASOPHILS % 0.9 % (0.0-1.0); EOSINOPHILS # (AUTO) 0.2 (0.0-0.4); EOSINOPHILS % 3.3 % (0.0-6.0); HEMATOCRIT 32.1 % (34.2-44.1); HEMOGLOBIN 10.4 g/dL (12.0-16.0); LYMPHOCYTES # (AUTO) 1.4 (1.0-3.2); LYMPHOCYTES % 25.4 % (18.0-39.1); MEAN CORPUSCULAR HEMOGLOBIN 30.6 pg (28-32); MEAN CORPUSCULAR HGB CONC 32.4 g/dL (31-35); MEAN CORPUSCULAR VOLUME 94.4 fL (81-99); MONOCYTES # (AUTO) 0.9 (0.2-0.8); MONOCYTES % 15.6 % (4.4-11.3); NEUTROPHILS % 54.4 % (38.7-80.0); PLATELET COUNT 77 x10e3/uL (140-360)
[2021-06-29 14:22] LABS: INR 1.04; PROTHROMBIN TIME 14.3 seconds (11.9-14.5)
[2021-06-29 14:23] LABS: ALBUMIN 3.3 g/dL (3.5-5.0); ALBUMIN/GLOBULIN RATIO 0.8 (0.8-2.0); ANION GAP 15.3 mmol/L (8-16); CALCIUM 9.7 mg/dL (8.4-10.2); CREATININE, SERUM 2.03 mg/dL (0.57-1.11); POTASSIUM 4.3 mmol/L (3.5-5.1)
[~2021-07-01] MED LIST changes: +ALBUTEROL0.63 MG/3 INH; +FOLIC ACID0.4 MG PO; +LEVOTHYROXINE112 MCG PO; +LIDOCAINE HCL 2% LOCAL INJ 5 ML SDV VIAL INJ ONE; +METOLAZONE5 MG PO; +POVIDONE IODINE 0.05% 0.05 % ML PO ONE; +PROPOFOL IV EMULSION 10 MG/ML 20 ML VIAL ONE; +TRELEGY ELLIPT1 EACH INH; +VITAMIN D325 MCG PEG; +VITAMIN E PO
[2021-07-01 11:45] VITALS: BP 162/57
== END | disposition home or self-care (01) ==
LOC: OR 08:38
PROVIDERS: ATTEND Internal Medicine Gastroenterology
DX: D64.9 Anemia, unspecified (principal); K29.50 Unspecified chronic gastritis without bleeding; K21.00 Gastro-esophageal reflux disease with esophagitis, without bleeding; K31.84 Gastroparesis; K22.70 Barrett's esophagus without dysplasia; K74.69 Other cirrhosis of liver; I85.10 Secondary esophageal varices without bleeding; K44.9 Diaphragmatic hernia without obstruction or gangrene; Z86.010 Personal history of colon polyps; K57.30 Diverticulosis of large intestine without perforation or abscess without bleeding; K72.90 Hepatic failure, unspecified without coma; Z71.3 Dietary counseling and surveillance; E03.9 Hypothyroidism, unspecified; E11.22 Type 2 diabetes mellitus with diabetic chronic kidney disease; I13.10 Hypertensive heart and chronic kidney disease without heart failure, with stage 1 through stage 4 chronic kidney disease, or unspecified chronic kidney disease; N18.9 Chronic kidney disease, unspecified; R00.1 Bradycardia, unspecified; I44.0 Atrioventricular block, first degree; E66.3 Overweight; Z88.8 Allergy status to other drugs, medicaments and biological substances; Z91.048 Other nonmedicinal substance allergy status; Z88.2 Allergy status to sulfonamides; Z88.1 Allergy status to other antibiotic agents; Z01.812 Encounter for preprocedural laboratory examination; Z20.822 Contact with and (suspected) exposure to COVID-19; Z79.4 Long term (current) use of insulin; Z79.899 Other long term (current) drug therapy; Z68.26 Body mass index [BMI] 26.0-26.9, adult
CPT/HCPCS: 36415 ×2; 43239; 80053; 82948; 85025; 85610; 85730; 88305; 88312; J2001; J2704; U0002

== ENCOUNTER 2021-08-10 09:57 | Inpatient (IN) | payer MEDICARE, BC ==
[2021-08-10] VITALS (19 sets, daily range): BP systolic 158–189; BP diastolic 49–69
[~2021-08-10] VITALS: Ht 165.1 cm; Wt 72.1 kg
[~2021-08-10 09:57] MED LIST changes: -LIDOCAINE HCL 2% LOCAL INJ 5 ML SDV VIAL INJ ONE; -POVIDONE IODINE 0.05% 0.05 % ML PO ONE; -PROPOFOL IV EMULSION 10 MG/ML 20 ML VIAL ONE
[2021-08-10 10:24] LABS: CLARITY,URINE CLEAR (CLEAR); COLOR,URINE YELLOW (YELLOW)
[2021-08-10 10:25] LABS: KETONES,URINE NEGATIVE (NEGATIVE); LEUKOCYTE ESTERASE ,URINE NEGATIVE (NEGATIVE); NITRITE,URINE NEGATIVE (NEGATIVE); PROTEIN,URINE DIPSTICK 2+ (NEGATIVE); URINE UROBILINOGEN 0.2 mg/dL (0.2 - 1)
[2021-08-10 10:26] LABS: AMPHETAMINES SCREEN,URINE NEGATIVE (NEGATIVE); BENZODIAZEPINES SCREEN,URINE NEGATIVE (NEGATIVE); PHENCYCLIDINE SCREEN,URINE NEGATIVE (NEGATIVE)
[2021-08-10 10:29] LABS: BASOPHILS % 0.8 % (0.0-1.0); EOSINOPHILS # (AUTO) 0.1 (0.0-0.4); EOSINOPHILS % 2.3 % (0.0-6.0); HEMOGLOBIN 10.8 g/dL (12.0-16.0); LYMPHOCYTES % 19.8 % (18.0-39.1); MEAN CORPUSCULAR HEMOGLOBIN 30.1 pg (28-32); MEAN CORPUSCULAR HGB CONC 33.8 g/dL (31-35); MEAN CORPUSCULAR VOLUME 89.1 fL (81-99); MONOCYTES # (AUTO) 0.6 (0.2-0.8); MONOCYTES % 10.9 % (4.4-11.3); NEUTROPHILS # (AUTO) 3.4 (2.1-6.9); NEUTROPHILS % 65.2 % (38.7-80.0); PLATELET COUNT 84 x10e3/uL (140-360); RED BLOOD COUNT 3.59 x10e6/uL (3.6-5.1); RED CELL DISTRIBUTION WIDTH 13.5 % (11.7-14.4)
[2021-08-10 10:37] LABS: BACTERIA,URINE FEW /HPF; EPITHELIAL CELLS,URINE RARE /LPF; RBC,URINE 0-5 /HPF (0-5)
[2021-08-10 11:06] LABS: INR 1.16; PROTHROMBIN TIME 15.8 seconds (11.9-14.5)
[2021-08-10 11:07] LABS: PARTIAL THROMBOPLASTIN TIME 29.1 seconds (23.8-35.5)
[2021-08-10 11:17] LABS: ALBUMIN 3.3 g/dL (3.5-5.0); ALBUMIN/GLOBULIN RATIO 0.9 (0.8-2.0); ANION GAP 15.2 mmol/L (8-16); CALCIUM 10.3 mg/dL (8.4-10.2); CREATININE, SERUM 2.4 mg/dL (0.57-1.11); POTASSIUM 4.2 mmol/L (3.5-5.1)
[2021-08-10 11:23] LABS: CREATINE KINASE MB 4.9 ng/mL (0-5.0)
[2021-08-10 11:25] LABS: B-TYPE NATRIURETIC PEPTIDE2 204.7 pg/mL (0-100)
[2021-08-10 11:28] LABS: SALICYLATE < 5.0 mg/dL (0-30)
[2021-08-10] MEDS ORDERED: INSULIN LISPRO 100 UNIT/1 ML 3ML VIAL SQ ONE (11:30)
[2021-08-10] MEDS ORDERED: ONDANSETRON HCL INJ 2MG/ML 2ML 2 MG/ML VIAL IV PRN (11:45)
[2021-08-10] MEDS: CEFTRIAXONE 1 GM in SODIUM CHLORIDE 0.9% 50ML 50 ML IV SCH ×2 (11:48→20:42)
[2021-08-10] MEDS: LACTULOSE SYRUP 20 GM/30 ML UDC PO SCH ×3 (13:03→23:54)
[2021-08-10] MEDS ORDERED: SODIUM CHLORIDE 0.9% 500ML 500 ML IV ONE (16:30)
[2021-08-10] MEDS ORDERED: ACETAMINOPHEN 325 MG TAB PO PRN (17:30)
[2021-08-10] MEDS ORDERED: LACTULOSE20 GM/30 M PO (17:58)
[2021-08-10] MEDS ORDERED: SLOW RELEASE I143 MG PO (17:58)
[2021-08-10] MEDS: HYDRALAZINE HCL 20 MG/ML VIAL IV PRN (21:17)
[2021-08-11] VITALS (21 sets, daily range): BP systolic 138–178; BP diastolic 45–76
[2021-08-11] MEDS ORDERED: ENALAPRILAT IV INJ 1.25 MG/ML VIAL IV PRN (00:15)
[2021-08-11 04:58] LABS: BASOPHILS # (AUTO) 0.1 (0.0-0.1); BASOPHILS % 0.9 % (0.0-1.0); EOSINOPHILS # (AUTO) 0.2 (0.0-0.4); EOSINOPHILS % 2.2 % (0.0-6.0); HEMATOCRIT 32.8 % (34.2-44.1); HEMOGLOBIN 11.1 g/dL (12.0-16.0); LYMPHOCYTES # (AUTO) 1.3 (1.0-3.2); LYMPHOCYTES % 15.3 % (18.0-39.1); MEAN CORPUSCULAR HEMOGLOBIN 30.1 pg (28-32); MEAN CORPUSCULAR HGB CONC 33.8 g/dL (31-35); MEAN CORPUSCULAR VOLUME 88.9 fL (81-99); MONOCYTES # (AUTO) 0.9 (0.2-0.8); MONOCYTES % 11.4 % (4.4-11.3); NEUTROPHILS # (AUTO) 5.7 (2.1-6.9); NEUTROPHILS % 69.8 % (38.7-80.0); PLATELET COUNT 90 x10e3/uL (140-360); RED BLOOD COUNT 3.69 x10e6/uL (3.6-5.1); RED CELL DISTRIBUTION WIDTH 13.9 % (11.7-14.4)
[2021-08-11 05:22] LABS: ALBUMIN 3.2 g/dL (3.5-5.0); ALBUMIN/GLOBULIN RATIO 0.9 (0.8-2.0); ANION GAP 14.7 mmol/L (8-16); CALCIUM 10.5 mg/dL (8.4-10.2); CREATININE, SERUM 2.12 mg/dL (0.57-1.11); POTASSIUM 3.7 mmol/L (3.5-5.1)
[2021-08-11] MEDS: LACTULOSE SYRUP 20 GM/30 ML UDC PO SCH ×3 (05:45→18:00)
[2021-08-11 05:51] LABS: PHOSPHORUS 3.1 MG/DL (2.3-4.7)
[2021-08-11 06:16] LABS: FERRITIN 40.5 ng/mL (4.63-204.00)
[2021-08-11 06:17] LABS: CHOL/HDL RATIO 7.5 (3.0-3.6)
[2021-08-11] MEDS: CEFTRIAXONE 1 GM in SODIUM CHLORIDE 0.9% 50ML 50 ML IV SCH ×2 (08:19→20:42)
[2021-08-11] MEDS: HYDRALAZINE HCL 20 MG/ML VIAL IV PRN ×2 (08:21→16:24)
[2021-08-11] MEDS ORDERED: DEXTROSE 50% SYRINGE 50 ML IV PRN (12:00)
[2021-08-11] MEDS: INSULIN LISPRO 100 UNIT/1 ML 3ML VIAL SQ SCH ×3 (12:08→21:10)
[2021-08-11 14:20] LABS: CREATINE KINASE MB 2.3 ng/mL (0-5.0)
[2021-08-11] MEDS: RIFAXIMIN 550 MG TABLET PO SCH (16:24)
[2021-08-11] MEDS ORDERED: DEXTROSE 5% 1,000 ML IV ONE (16:35)
[2021-08-11] MEDS: ENALAPRILAT IV INJ 1.25 MG/ML VIAL IV SCH (19:00)
[2021-08-11] MEDS: DEXTROSE 5% 1,000 ML IV SCH (20:42)
[2021-08-12] MEDS: LACTULOSE SYRUP 20 GM/30 ML UDC PO SCH ×4 (05:57→18:09)
[2021-08-12] MEDS: ENALAPRILAT IV INJ 1.25 MG/ML VIAL IV SCH ×4 (05:57→18:09)
[2021-08-12 06:15] LABS: BASOPHILS # (AUTO) 0.1 (0.0-0.1); BASOPHILS % 0.7 % (0.0-1.0); EOSINOPHILS # (AUTO) 0.2 (0.0-0.4); EOSINOPHILS % 3.2 % (0.0-6.0); HEMATOCRIT 33.1 % (34.2-44.1); HEMOGLOBIN 10.9 g/dL (12.0-16.0); LYMPHOCYTES # (AUTO) 1.7 (1.0-3.2); LYMPHOCYTES % 23.4 % (18.0-39.1); MEAN CORPUSCULAR HEMOGLOBIN 30.3 pg (28-32); MEAN CORPUSCULAR HGB CONC 32.9 g/dL (31-35); MEAN CORPUSCULAR VOLUME 91.9 fL (81-99); MONOCYTES % 12.9 % (4.4-11.3); NEUTROPHILS # (AUTO) 4.4 (2.1-6.9); NEUTROPHILS % 59.5 % (38.7-80.0); PLATELET COUNT 78 x10e3/uL (140-360); RED CELL DISTRIBUTION WIDTH 14.4 % (11.7-14.4)
[2021-08-12 06:38] LABS: ALBUMIN 2.9 g/dL (3.5-5.0); ALBUMIN/GLOBULIN RATIO 0.8 (0.8-2.0); ANION GAP 13.4 mmol/L (8-16); CREATININE, SERUM 2.12 mg/dL (0.57-1.11); POTASSIUM 3.4 mmol/L (3.5-5.1)
[2021-08-12 07:52] VITALS: BP 126/52
[2021-08-12] MEDS: INSULIN LISPRO 100 UNIT/1 ML 3ML VIAL SQ SCH ×4 (08:30→21:00)
[2021-08-12 08:37] VITALS: BP 157/55
[2021-08-12] MEDS: DEXTROSE 5% 1,000 ML IV SCH ×3 (08:45→17:51)
[2021-08-12] MEDS: CEFTRIAXONE 1 GM in SODIUM CHLORIDE 0.9% 50ML 50 ML IV SCH ×2 (09:47→22:00)
[2021-08-12] MEDS: RIFAXIMIN 550 MG TABLET PO SCH ×2 (09:51→18:09)
[2021-08-12 11:28] VITALS: BP 169/60
[2021-08-12] MEDS ORDERED: DEXTROSE 50% SYRINGE 50 ML IV PRN ×2 (14:45→15:00)
[2021-08-12] MEDS ORDERED: POTASSIUM CHLORIDE 20MEQ/100ML 200 ML IV ONE (15:30)
[2021-08-12] MEDS ORDERED: POTASSIUM CHLORIDE 20 MEQ TAB CR PO ONE (15:30)
[2021-08-12] MEDS ORDERED: DEXTROSE 5% 1,000 ML IV ONE (15:30)
[2021-08-12 16:42] VITALS: BP 164/56
[2021-08-12 20:00] VITALS: BP 139/68
[2021-08-12 20:19] VITALS: BP 139/68
[2021-08-13] VITALS (9 sets, daily range): BP systolic 140–164; BP diastolic 53–66
[2021-08-13] MEDS: DEXTROSE 5% 1,000 ML IV SCH (00:30)
[2021-08-13] MEDS: ENALAPRILAT IV INJ 1.25 MG/ML VIAL IV SCH ×4 (01:26→17:37)
[2021-08-13 06:15] LABS: BASOPHILS % 0.5 % (0.0-1.0); EOSINOPHILS # (AUTO) 0.3 (0.0-0.4); HEMATOCRIT 29.7 % (34.2-44.1); HEMOGLOBIN 9.8 g/dL (12.0-16.0); LYMPHOCYTES # (AUTO) 1.5 (1.0-3.2); LYMPHOCYTES % 27.4 % (18.0-39.1); MEAN CORPUSCULAR HEMOGLOBIN 30.2 pg (28-32); MEAN CORPUSCULAR VOLUME 91.7 fL (81-99); MONOCYTES # (AUTO) 0.7 (0.2-0.8); MONOCYTES % 13.2 % (4.4-11.3); NEUTROPHILS # (AUTO) 2.9 (2.1-6.9); NEUTROPHILS % 52.5 % (38.7-80.0); PLATELET COUNT 50 x10e3/uL (140-360); RED BLOOD COUNT 3.24 x10e6/uL (3.6-5.1)
[2021-08-13 06:37] LABS: ALBUMIN 2.6 g/dL (3.5-5.0); ALBUMIN/GLOBULIN RATIO 0.8 (0.8-2.0); ANION GAP 10.1 mmol/L (8-16); CREATININE, SERUM 1.83 mg/dL (0.57-1.11); POTASSIUM 3.1 mmol/L (3.5-5.1)
[2021-08-13 07:00] LABS: CALCIUM 8.5 mg/dL (8.4-10.2)
[2021-08-13] MEDS: INSULIN LISPRO 100 UNIT/1 ML 3ML VIAL SQ SCH ×4 (08:30→21:57)
[2021-08-13] MEDS ORDERED: ATENOLOL 50 MG TAB PO SCH (09:00)
[2021-08-13] MEDS ORDERED: POTASSIUM CHLORIDE 20MEQ/100ML 200 ML IV ONE (09:45)
[2021-08-13] MEDS ORDERED: MAGNESIUM SULFATE 2GM/50ML 50 ML IV ONE (10:30)
[2021-08-13] MEDS: RIFAXIMIN 550 MG TABLET PO SCH ×2 (11:39→17:37)
[2021-08-13] MEDS: LACTULOSE SYRUP 20 GM/30 ML UDC PO SCH ×2 (11:39→17:37)
[2021-08-13] MEDS ORDERED: AUGMENTIN 500-1 EACH PO (13:27)
[2021-08-13] MEDS ORDERED: ONDANSETRON HCL 4 MG ORAL DISINTEGRATING TAB PO PRN (15:00)
[2021-08-13] MEDS: CEFTRIAXONE 1 GM in SODIUM CHLORIDE 0.9% 50ML 50 ML IV SCH ×2 (16:20→21:56)
[2021-08-13 19:27] LABS: CALCIUM 8.6 mg/dL (8.4-10.2); CREATININE, SERUM 2.1 mg/dL (0.57-1.11)
[2021-08-14] MEDS: ENALAPRILAT IV INJ 1.25 MG/ML VIAL IV SCH ×2 (00:33→05:56)
[2021-08-14 04:05] VITALS: BP 141/51
[2021-08-14 06:06] LABS: BASOPHILS % 0.6 % (0.0-1.0); EOSINOPHILS # (AUTO) 0.4 (0.0-0.4); EOSINOPHILS % 5.3 % (0.0-6.0); HEMATOCRIT 30.7 % (34.2-44.1); HEMOGLOBIN 10.2 g/dL (12.0-16.0); LYMPHOCYTES # (AUTO) 1.4 (1.0-3.2); LYMPHOCYTES % 20.8 % (18.0-39.1); MEAN CORPUSCULAR HEMOGLOBIN 30.1 pg (28-32); MEAN CORPUSCULAR HGB CONC 33.2 g/dL (31-35); MEAN CORPUSCULAR VOLUME 90.6 fL (81-99); MONOCYTES # (AUTO) 0.8 (0.2-0.8); NEUTROPHILS # (AUTO) 4.1 (2.1-6.9); PLATELET COUNT 58 x10e3/uL (140-360); RED BLOOD COUNT 3.39 x10e6/uL (3.6-5.1)
[2021-08-14 06:29] LABS: ALBUMIN 2.6 g/dL (3.5-5.0); ALBUMIN/GLOBULIN RATIO 0.8 (0.8-2.0); ANION GAP 11.5 mmol/L (8-16); CALCIUM 8.6 mg/dL (8.4-10.2); CREATININE, SERUM 1.76 mg/dL (0.57-1.11); POTASSIUM 3.5 mmol/L (3.5-5.1)
[2021-08-14 08:16] VITALS: BP 128/72
== END 2021-08-14 10:59 | disposition home or self-care (01) | DRG 441 ==
LOC: ER 10:20 → ERHOLD 11:45 → ICU 14:25 → MED/SURG3 08-11 21:05
PROVIDERS: ADMIT Internal Medicine; ATTEND Internal Medicine
DX: K75.81 Nonalcoholic steatohepatitis (NASH) (principal); K72.00 Acute and subacute hepatic failure without coma; N17.9 Acute kidney failure, unspecified; N39.0 Urinary tract infection, site not specified; N18.4 Chronic kidney disease, stage 4 (severe); E03.9 Hypothyroidism, unspecified; G47.33 Obstructive sleep apnea (adult) (pediatric); K21.9 Gastro-esophageal reflux disease without esophagitis; E11.22 Type 2 diabetes mellitus with diabetic chronic kidney disease; I13.10 Hypertensive heart and chronic kidney disease without heart failure, with stage 1 through stage 4 chronic kidney disease, or unspecified chronic kidney disease; E11.65 Type 2 diabetes mellitus with hyperglycemia; E86.0 Dehydration; E78.5 Hyperlipidemia, unspecified; D64.9 Anemia, unspecified; I48.91 Unspecified atrial fibrillation; D69.6 Thrombocytopenia, unspecified; E87.6 Hypokalemia; Z99.81 Dependence on supplemental oxygen; Z88.2 Allergy status to sulfonamides; Z91.048 Other nonmedicinal substance allergy status; Z88.8 Allergy status to other drugs, medicaments and biological substances; Z87.440 Personal history of urinary (tract) infections; Z79.4 Long term (current) use of insulin
CPT/HCPCS: 36415; 70450; 71045; 80048; 80053; 80061; 80162; 80307; 80320; 80329; 81001; 82140; 82550; 82553; 82728; 82948; 83540; 83880; 84100; 84466; 84484; 85025; 85610; 85730; 87040; 87086; 87186; 93005; 94799; 96360; 96361; 96372; 97139; 99285; J0360; J0696; J3475; J3480; J7040; J7070; U0002

== ENCOUNTER 2021-11-07 14:37 | Inpatient (IN) | payer MEDICARE, BC ==
[~2021-11-07] VITALS: Ht 165.1 cm; Wt 72.1 kg
[~2021-11-07 14:37] MED LIST changes: +AUGMENTIN 500-1 EACH PO; +LACTULOSE20 GM/30 M PO; +SLOW RELEASE I143 MG PO
[2021-11-07] MEDS ORDERED: SODIUM CHLORIDE FLUSH 10 ML SYR INJ PRN (15:30)
[2021-11-07 15:43] LABS: BASOPHILS # (AUTO) 0.1 (0.0-0.1); BASOPHILS % 0.8 % (0.0-1.0); EOSINOPHILS # (AUTO) 0.2 (0.0-0.4); EOSINOPHILS % 2.9 % (0.0-6.0); HEMATOCRIT 35.7 % (34.2-44.1); HEMOGLOBIN 11.9 g/dL (12.0-16.0); LYMPHOCYTES % 27.5 % (18.0-39.1); MEAN CORPUSCULAR HEMOGLOBIN 31.4 pg (28-32); MEAN CORPUSCULAR HGB CONC 33.3 g/dL (31-35); MEAN CORPUSCULAR VOLUME 94.2 fL (81-99); MONOCYTES # (AUTO) 1.3 (0.2-0.8); MONOCYTES % 18.5 % (4.4-11.3); NEUTROPHILS # (AUTO) 3.6 (2.1-6.9); PLATELET COUNT 97 x10e3/uL (140-360); RED BLOOD COUNT 3.79 x10e6/uL (3.6-5.1); RED CELL DISTRIBUTION WIDTH 15.6 % (11.7-14.4)
[2021-11-07 15:55] LABS: CLARITY,URINE HAZY (CLEAR); COLOR,URINE YELLOW (YELLOW); KETONES,URINE NEGATIVE (NEGATIVE); LEUKOCYTE ESTERASE ,URINE NEGATIVE (NEGATIVE); NITRITE,URINE NEGATIVE (NEGATIVE); PROTEIN,URINE DIPSTICK NEGATIVE (NEGATIVE); URINE UROBILINOGEN 0.2 mg/dL (0.2 - 1)
[2021-11-07 16:00] LABS: AMPHETAMINES SCREEN,URINE NEGATIVE (NEGATIVE); BACTERIA,URINE FEW /HPF; BENZODIAZEPINES SCREEN,URINE NEGATIVE (NEGATIVE); EPITHELIAL CELLS,URINE FEW /LPF; PHENCYCLIDINE SCREEN,URINE NEGATIVE (NEGATIVE); RBC,URINE 0-5 /HPF (0-5); WBC,URINE (MAN) 0-5 /HPF (0-5)
[2021-11-07 16:00] LABS: INR 1.11; PROTHROMBIN TIME 15.3 seconds (11.9-14.5)
[2021-11-07 16:08] LABS: ALANINE AMINOTRANSFERASE 21 IU/L (0-55); ALBUMIN 3.1 g/dL (3.5-5.0); ALBUMIN/GLOBULIN RATIO 0.8 (0.8-2.0); ALKALINE PHOSPHATASE 143 IU/L (40-150); ANION GAP 19.6 mmol/L (8-16); BLOOD UREA NITROGEN 73 mg/dL (7-26); BUN/CREATININE RATIO 25 (6-25); CALCIUM 10.4 mg/dL (8.4-10.2); CARBON DIOXIDE 26 mmol/L (22-29); CHLORIDE 99 mmol/L (98-107); CREATININE, SERUM 2.95 mg/dL (0.57-1.11); GLUCOSE 256 mg/dL (74-118); PHOSPHORUS 2.9 MG/DL (2.3-4.7); POTASSIUM 3.6 mmol/L (3.5-5.1); SODIUM 141 mmol/L (136-145)
[2021-11-07] MEDS ORDERED: ONDANSETRON HCL INJ 2MG/ML 2ML 2 MG/ML VIAL IV PRN (17:15)
[2021-11-07] MEDS ORDERED: LACTULOSE SYRUP 20 GM/30 ML UDC PO PRN (17:15)
[2021-11-07] MEDS ORDERED: DEXTROSE 50% SYRINGE 50 ML IV PRN (17:15)
[2021-11-07 20:00] VITALS: BP 135/36
[2021-11-07 21:00] VITALS: BP 135/36
[2021-11-07] MEDS: SODIUM CHLORIDE 0.9% 1000ML 1,000 ML IV SCH (21:00)
[2021-11-07] MEDS: LACTULOSE SYRUP 20 GM/30 ML UDC PO SCH (23:40)
[2021-11-08] VITALS (8 sets, daily range): BP systolic 138–163; BP diastolic 47–79
[2021-11-08] MEDS: SODIUM CHLORIDE 0.9% 1000ML 1,000 ML IV SCH ×3 (00:15→13:15)
[2021-11-08] MEDS: LACTULOSE SYRUP 20 GM/30 ML UDC PO SCH ×3 (05:22→22:00)
[2021-11-08 07:08] LABS: BASOPHILS % 0.8 % (0.0-1.0); EOSINOPHILS # (AUTO) 0.1 (0.0-0.4); EOSINOPHILS % 2.7 % (0.0-6.0); HEMATOCRIT 31.8 % (34.2-44.1); HEMOGLOBIN 10.6 g/dL (12.0-16.0); LYMPHOCYTES # (AUTO) 1.6 (1.0-3.2); LYMPHOCYTES % 29.7 % (18.0-39.1); MEAN CORPUSCULAR HEMOGLOBIN 31.3 pg (28-32); MEAN CORPUSCULAR HGB CONC 33.3 g/dL (31-35); MEAN CORPUSCULAR VOLUME 93.8 fL (81-99); MONOCYTES # (AUTO) 0.8 (0.2-0.8); MONOCYTES % 14.4 % (4.4-11.3); NEUTROPHILS # (AUTO) 2.7 (2.1-6.9); NEUTROPHILS % 52.2 % (38.7-80.0); PLATELET COUNT 62 x10e3/uL (140-360); RED BLOOD COUNT 3.39 x10e6/uL (3.6-5.1); RED CELL DISTRIBUTION WIDTH 14.9 % (11.7-14.4)
[2021-11-08] MEDS: PANTOPRAZOLE SOD 40 MG TABEC PO SCH (07:30)
[2021-11-08] MEDS: LEVOTHYROXINE SODIUM 112 MCG TAB PO SCH (07:30)
[2021-11-08 07:44] LABS: ALBUMIN 2.9 g/dL (3.5-5.0); ALBUMIN/GLOBULIN RATIO 0.9 (0.8-2.0); ANION GAP 18.6 mmol/L (8-16); CALCIUM 9.5 mg/dL (8.4-10.2); CREATININE, SERUM 2.67 mg/dL (0.57-1.11); POTASSIUM 3.6 mmol/L (3.5-5.1)
[2021-11-08] MEDS: FUROSEMIDE 40 MG TAB PO SCH ×2 (09:00→17:00)
[2021-11-08] MEDS: METOLAZONE 5 MG TAB PO SCH (09:00)
[2021-11-08] MEDS: ATENOLOL 50 MG TAB PO SCH (09:00)
[2021-11-08] MEDS: RIFAXIMIN 550 MG TABLET PO SCH ×2 (09:00→17:00)
[2021-11-08] MEDS ORDERED: LACTULOSE SYRUP 20 GM/30 ML UDC PO PRN (15:30)
[2021-11-08] MEDS ORDERED: DEXTROSE 50% SYRINGE 50 ML IV PRN (20:00)
[2021-11-08] MEDS: INSULIN LISPRO 100 UNIT/1 ML 3ML VIAL SQ SCH (21:30)
[2021-11-08] MEDS ORDERED: Vancomycin IV 1 GM in SODIUM CHLORIDE 0.9% 250ML 250 ML IV ONE (21:30)
[2021-11-09] VITALS: BP 163/61
[2021-11-09] MEDS: SODIUM CHLORIDE 0.9% 1000ML 1,000 ML IV SCH ×2 (00:15→08:28)
[2021-11-09 04:00] VITALS: BP 130/43
[2021-11-09] MEDS: LACTULOSE SYRUP 20 GM/30 ML UDC PO SCH ×2 (06:00→14:00)
[2021-11-09] MEDS: PANTOPRAZOLE SOD 40 MG TABEC PO SCH (07:41)
[2021-11-09] MEDS: LEVOTHYROXINE SODIUM 112 MCG TAB PO SCH (07:41)
[2021-11-09] MEDS: INSULIN LISPRO 100 UNIT/1 ML 3ML VIAL SQ SCH ×3 (07:53→16:19)
[2021-11-09] MEDS: METOLAZONE 5 MG TAB PO SCH (08:00)
[2021-11-09] MEDS: ATENOLOL 50 MG TAB PO SCH (08:00)
[2021-11-09] MEDS: FUROSEMIDE 40 MG TAB PO SCH ×2 (08:00→17:02)
[2021-11-09] MEDS: RIFAXIMIN 550 MG TABLET PO SCH ×2 (08:00→17:02)
[2021-11-09 08:42] VITALS: BP 128/58
[2021-11-09 09:00] VITALS: BP 128/58
[2021-11-09 12:26] VITALS: BP 163/58
[2021-11-09] MEDS ORDERED: ONDANSETRON HCL 4 MG ORAL DISINTEGRATING TAB PO PRN (14:00)
[2021-11-09] MEDS ORDERED: ONDANSETRON ODT4 MG PO (15:35)
[2021-11-09 16:34] VITALS: BP 136/51
== END 2021-11-09 17:23 | disposition home or self-care (01) | DRG 442 ==
LOC: ER 14:44 → ERHOLD 17:02 → MED/SURG2 18:23
PROVIDERS: ADMIT Internal Medicine; ATTEND Internal Medicine
DX: K72.90 Hepatic failure, unspecified without coma (principal); N17.9 Acute kidney failure, unspecified; K74.60 Unspecified cirrhosis of liver; K75.81 Nonalcoholic steatohepatitis (NASH); I12.9 Hypertensive chronic kidney disease with stage 1 through stage 4 chronic kidney disease, or unspecified chronic kidney disease; N18.30 Chronic kidney disease, stage 3 unspecified; J44.9 Chronic obstructive pulmonary disease, unspecified; E11.9 Type 2 diabetes mellitus without complications; D64.9 Anemia, unspecified; D69.6 Thrombocytopenia, unspecified; Z20.822 Contact with and (suspected) exposure to COVID-19; Z88.1 Allergy status to other antibiotic agents; Z88.2 Allergy status to sulfonamides
CPT/HCPCS: 36415; 51700; 70450; 71045; 80053; 80307; 80320; 81001; 82140; 82948; 83605; 83735; 84100; 85025; 85610; 85730; 87040; 87071; 87086; 87205; 93005; 96372; 99284; J2405; J3370; J7030; J7050; J7799

== ENCOUNTER 2021-12-12 11:49 | Emergency (ER) | payer BC, MEDICARE ==
[~2021-12-12] VITALS: Ht 165.1 cm; Wt 72.1 kg
[2021-12-12] MEDS ORDERED: SODIUM CHLORIDE 0.9% 1000ML 1,000 ML IV STA (12:04)
[2021-12-12] MEDS ORDERED: SODIUM CHLORIDE 0.9% 1000ML 1,000 ML ONE (12:23)
== END 2021-12-12 13:36 | disposition home or self-care (01) ==
LOC: FSED 11:53
DX: E86.9 Volume depletion, unspecified (principal); N17.9 Acute kidney failure, unspecified; E11.22 Type 2 diabetes mellitus with diabetic chronic kidney disease; I12.9 Hypertensive chronic kidney disease with stage 1 through stage 4 chronic kidney disease, or unspecified chronic kidney disease; N18.4 Chronic kidney disease, stage 4 (severe); J44.9 Chronic obstructive pulmonary disease, unspecified; K76.9 Liver disease, unspecified; E03.9 Hypothyroidism, unspecified; M06.9 Rheumatoid arthritis, unspecified; I48.91 Unspecified atrial fibrillation; Z88.1 Allergy status to other antibiotic agents; Z88.2 Allergy status to sulfonamides; Z91.048 Other nonmedicinal substance allergy status; Z79.4 Long term (current) use of insulin; Z79.899 Other long term (current) drug therapy
CPT/HCPCS: 80053; 81003; 82553; 84484; 85025; 99284; J7030; 93005

== ENCOUNTER 2022-02-25 13:48 | Emergency (ER) | payer MEDICARE, BC ==
[~2022-02-25] VITALS: Ht 165.1 cm; Wt 72.6 kg
[2022-02-25] MEDS ORDERED: SODIUM CHLORIDE 0.9% 1000ML 1,000 ML IV STA (14:27)
[2022-02-25] MEDS ORDERED: CIPRO500 MG PO (15:09)
[2022-02-25 15:33] VITALS: BP 112/68
== END 2022-02-25 15:38 | disposition home or self-care (01) ==
LOC: FSED 14:21
DX: R42 Dizziness and giddiness (principal); N39.0 Urinary tract infection, site not specified; I12.9 Hypertensive chronic kidney disease with stage 1 through stage 4 chronic kidney disease, or unspecified chronic kidney disease; E11.22 Type 2 diabetes mellitus with diabetic chronic kidney disease; N18.9 Chronic kidney disease, unspecified; J44.9 Chronic obstructive pulmonary disease, unspecified; E03.9 Hypothyroidism, unspecified; K76.9 Liver disease, unspecified; R94.31 Abnormal electrocardiogram [ECG] [EKG]
CPT/HCPCS: 36415; 80048; 80076; 81003; 82948; 85025; 93005; 99283

== ENCOUNTER 2022-03-19 13:54 | Inpatient (IN) | payer MEDICARE, BC ==
[~2022-03-19] VITALS: Ht 165.1 cm; Wt 72.6 kg
[~2022-03-19 13:54] MED LIST changes: +CIPRO500 MG PO
[2022-03-19 15:11] LABS: BASOPHILS # (AUTO) 0.1 (0.0-0.1); BASOPHILS % 1.2 % (0.0-1.0); EOSINOPHILS # (AUTO) 0.4 (0.0-0.4); EOSINOPHILS % 5.9 % (0.0-6.0); HEMATOCRIT 36.7 % (34.2-44.1); HEMOGLOBIN 11.8 g/dL (12.0-16.0); LYMPHOCYTES # (AUTO) 1.3 (1.0-3.2); LYMPHOCYTES % 22.4 % (18.0-39.1); MEAN CORPUSCULAR HEMOGLOBIN 31.9 pg (28-32); MEAN CORPUSCULAR HGB CONC 32.2 g/dL (31-35); MEAN CORPUSCULAR VOLUME 99.2 fL (81-99); MONOCYTES # (AUTO) 0.8 (0.2-0.8); MONOCYTES % 13.8 % (4.4-11.3); NEUTROPHILS # (AUTO) 3.4 (2.1-6.9); NEUTROPHILS % 56.4 % (38.7-80.0); PLATELET COUNT 80 x10e3/uL (140-360); RED CELL DISTRIBUTION WIDTH 13.6 % (11.7-14.4)
[2022-03-19 15:31] LABS: ALBUMIN 2.9 g/dL (3.5-5.0); ALBUMIN/GLOBULIN RATIO 0.8 (0.8-2.0); ANION GAP 16.1 mmol/L (8-16); CALCIUM 9.4 mg/dL (8.4-10.2); CREATININE, SERUM 1.83 mg/dL (0.57-1.11); POTASSIUM 4.1 mmol/L (3.5-5.1)
[2022-03-19] MEDS ORDERED: LACTULOSE SYRUP 20 GM/30 ML UDC PO STA (16:22)
[2022-03-19] MEDS: SODIUM CHLORIDE 0.9% 1000ML 1,000 ML IV SCH (17:09)
[2022-03-19 20:00] VITALS: BP 159/59
[2022-03-19 20:12] VITALS: BP 159/59
[2022-03-19 21:00] VITALS: BP 159/59
[2022-03-20] VITALS (8 sets, daily range): BP systolic 140–175; BP diastolic 52–67
[2022-03-20] MEDS: SODIUM CHLORIDE 0.9% 1000ML 1,000 ML IV SCH ×2 (04:40→11:15)
[2022-03-20 06:30] LABS: BASOPHILS # (AUTO) 0.1 (0.0-0.1); BASOPHILS % 1.1 % (0.0-1.0); EOSINOPHILS # (AUTO) 0.3 (0.0-0.4); EOSINOPHILS % 5.6 % (0.0-6.0); LYMPHOCYTES # (AUTO) 1.4 (1.0-3.2); LYMPHOCYTES % 25.2 % (18.0-39.1); MEAN CORPUSCULAR HEMOGLOBIN 32.8 pg (28-32); MEAN CORPUSCULAR HGB CONC 34.4 g/dL (31-35); MEAN CORPUSCULAR VOLUME 95.5 fL (81-99); MONOCYTES # (AUTO) 0.7 (0.2-0.8); MONOCYTES % 12.1 % (4.4-11.3); NEUTROPHILS # (AUTO) 3.1 (2.1-6.9); NEUTROPHILS % 55.6 % (38.7-80.0); PLATELET COUNT 68 x10e3/uL (140-360); RED BLOOD COUNT 3.35 x10e6/uL (3.6-5.1); RED CELL DISTRIBUTION WIDTH 13.7 % (11.7-14.4)
[2022-03-20 07:14] LABS: ALBUMIN 2.6 g/dL (3.5-5.0); ALBUMIN/GLOBULIN RATIO 0.8 (0.8-2.0); ANION GAP 14.7 mmol/L (8-16); CALCIUM 9.1 mg/dL (8.4-10.2); CREATININE, SERUM 1.75 mg/dL (0.57-1.11); POTASSIUM 3.7 mmol/L (3.5-5.1)
[2022-03-20] MEDS ORDERED: DEXTROSE 50% SYRINGE 50 ML IV PRN (11:30)
[2022-03-20] MEDS: INSULIN LISPRO 100 UNIT/1 ML 3ML VIAL SQ SCH ×3 (11:50→21:17)
[2022-03-20] MEDS ORDERED: PROPOFOL IV EMULSION 50 ML IV ONE (12:55)
[2022-03-20] MEDS ORDERED: HYOSCYAMINE SULFATE 0.5 MG/ML INJ ONE (12:55)
[2022-03-20] MEDS: DIGOXIN 0.125 MG TAB PO SCH (13:23)
[2022-03-20] MEDS: ATENOLOL 50 MG TAB PO SCH ×2 (13:23→16:55)
[2022-03-20 14:44] LABS: CLARITY,URINE CLEAR (CLEAR); COLOR,URINE YELLOW (YELLOW); KETONES,URINE NEGATIVE (NEGATIVE); LEUKOCYTE ESTERASE ,URINE TRACE (NEGATIVE); NITRITE,URINE NEGATIVE (NEGATIVE); PROTEIN,URINE DIPSTICK 2+ (NEGATIVE); URINE UROBILINOGEN 0.2 mg/dL (0.2 - 1)
[2022-03-20 14:54] LABS: BACTERIA,URINE FEW /HPF; EPITHELIAL CELLS,URINE MODERATE /LPF; RBC,URINE 0-5 /HPF (0-5); TRANSITIONAL EPI CELLS,URINE MANY
[2022-03-20] MEDS: RIFAXIMIN 550 MG TABLET PO SCH (16:55)
[2022-03-20] MEDS: TOUJEO SC SCH (21:00)
[2022-03-20] MEDS: IRBESARTAN 150 MG TAB PO SCH (21:16)
[2022-03-21] VITALS (8 sets, daily range): BP systolic 156–177; BP diastolic 49–76
[2022-03-21] MEDS: LEVOTHYROXINE SODIUM 112 MCG TAB PO SCH (05:40)
[2022-03-21 06:18] LABS: BASOPHILS # (AUTO) 0.1 (0.0-0.1); BASOPHILS % 1.3 % (0.0-1.0); EOSINOPHILS # (AUTO) 0.3 (0.0-0.4); EOSINOPHILS % 6.8 % (0.0-6.0); HEMATOCRIT 31.7 % (34.2-44.1); HEMOGLOBIN 10.5 g/dL (12.0-16.0); LYMPHOCYTES # (AUTO) 1.1 (1.0-3.2); LYMPHOCYTES % 24.5 % (18.0-39.1); MEAN CORPUSCULAR HEMOGLOBIN 32.8 pg (28-32); MEAN CORPUSCULAR HGB CONC 33.1 g/dL (31-35); MEAN CORPUSCULAR VOLUME 99.1 fL (81-99); MONOCYTES # (AUTO) 0.6 (0.2-0.8); NEUTROPHILS # (AUTO) 2.4 (2.1-6.9); NEUTROPHILS % 53.2 % (38.7-80.0); PLATELET COUNT 58 x10e3/uL (140-360)
[2022-03-21 06:46] LABS: ANION GAP 13.8 mmol/L (8-16); CALCIUM 8.5 mg/dL (8.4-10.2); CREATININE, SERUM 1.41 mg/dL (0.57-1.11); POTASSIUM 3.8 mmol/L (3.5-5.1)
[2022-03-21] MEDS: INSULIN LISPRO 100 UNIT/1 ML 3ML VIAL SQ SCH ×4 (07:30→21:14)
[2022-03-21] MEDS: PANTOPRAZOLE SOD 40 MG TABEC PO SCH (09:29)
[2022-03-21] MEDS: RIFAXIMIN 550 MG TABLET PO SCH ×2 (09:29→16:01)
[2022-03-21] MEDS: DIGOXIN 0.125 MG TAB PO SCH (09:30)
[2022-03-21] MEDS: ATENOLOL 50 MG TAB PO SCH ×2 (09:30→17:10)
[2022-03-21] MEDS: TOUJEO SC SCH (21:00)
[2022-03-21] MEDS: IRBESARTAN 150 MG TAB PO SCH (21:12)
[2022-03-21 23:26] LABS: % IRON SATURATION 41 % (15-50); IRON 113 ug/dL (50-170); TOTAL IRON BINDING CAPACITY 273 ug/dL (261-478); TRANSFERRIN 195 mg/dL (180-382)
[2022-03-22] VITALS (8 sets, daily range): BP systolic 121–172; BP diastolic 53–69
[2022-03-22] MEDS: LEVOTHYROXINE SODIUM 112 MCG TAB PO SCH (07:20)
[2022-03-22] MEDS: ATENOLOL 50 MG TAB PO SCH ×2 (09:00→17:00)
[2022-03-22] MEDS: PANTOPRAZOLE SOD 40 MG TABEC PO SCH (09:30)
[2022-03-22] MEDS: RIFAXIMIN 550 MG TABLET PO SCH ×2 (09:31→17:01)
[2022-03-22] MEDS: DIGOXIN 0.125 MG TAB PO SCH (09:39)
[2022-03-22] MEDS: INSULIN LISPRO 100 UNIT/1 ML 3ML VIAL SQ SCH ×4 (09:40→21:00)
[2022-03-22] MEDS ORDERED: ALBUTEROL SULF 0.083% NEB SOLN 3 ML NEB INH PRN (10:15)
[2022-03-22] MEDS ORDERED: LACTULOSE SYRUP 20 GM/30 ML UDC PO ONE (10:15)
[2022-03-22] MEDS: LACTULOSE SYRUP 20 GM/30 ML UDC PO SCH ×3 (14:54→23:47)
[2022-03-22] MEDS: FUROSEMIDE 40 MG TAB PO SCH (17:00)
[2022-03-22] MEDS ORDERED: ACETAMINOPHEN 325 MG TAB PO PRN (19:15)
[2022-03-22] MEDS: TOUJEO SC SCH (21:00)
[2022-03-22] MEDS: IRBESARTAN 150 MG TAB PO SCH (21:39)
[2022-03-23 00:49] VITALS: BP 163/69
[2022-03-23] MEDS: LEVOTHYROXINE SODIUM 112 MCG TAB PO SCH (05:56)
[2022-03-23] MEDS: LACTULOSE SYRUP 20 GM/30 ML UDC PO SCH (05:56)
[2022-03-23 06:19] LABS: BASOPHILS # (AUTO) 0.1 (0.0-0.1); BASOPHILS % 1.4 % (0.0-1.0); EOSINOPHILS # (AUTO) 0.2 (0.0-0.4); EOSINOPHILS % 5.5 % (0.0-6.0); HEMATOCRIT 30.6 % (34.2-44.1); HEMOGLOBIN 10.6 g/dL (12.0-16.0); LYMPHOCYTES % 22.9 % (18.0-39.1); MEAN CORPUSCULAR HEMOGLOBIN 32.6 pg (28-32); MEAN CORPUSCULAR HGB CONC 34.6 g/dL (31-35); MEAN CORPUSCULAR VOLUME 94.2 fL (81-99); MONOCYTES # (AUTO) 0.6 (0.2-0.8); MONOCYTES % 14.1 % (4.4-11.3); NEUTROPHILS # (AUTO) 2.3 (2.1-6.9); NEUTROPHILS % 55.9 % (38.7-80.0); PLATELET COUNT 50 x10e3/uL (140-360); RED BLOOD COUNT 3.25 x10e6/uL (3.6-5.1); RED CELL DISTRIBUTION WIDTH 13.3 % (11.7-14.4)
[2022-03-23 06:24] VITALS: BP 160/57
[2022-03-23 06:47] LABS: ANION GAP 15.6 mmol/L (8-16); CALCIUM 8.8 mg/dL (8.4-10.2); CREATININE, SERUM 1.27 mg/dL (0.57-1.11); POTASSIUM 3.6 mmol/L (3.5-5.1)
[2022-03-23] MEDS: INSULIN LISPRO 100 UNIT/1 ML 3ML VIAL SQ SCH (08:00)
[2022-03-23 08:16] VITALS: BP 159/69
[2022-03-23 08:49] VITALS: BP 159/69
[2022-03-23] MEDS: DIGOXIN 0.125 MG TAB PO SCH (09:30)
[2022-03-23] MEDS: PANTOPRAZOLE SOD 40 MG TABEC PO SCH (09:30)
[2022-03-23] MEDS: ATENOLOL 50 MG TAB PO SCH (09:30)
[2022-03-23] MEDS: RIFAXIMIN 550 MG TABLET PO SCH (09:30)
[2022-03-23] MEDS: FUROSEMIDE 40 MG TAB PO SCH (09:30)
[2022-03-23] MEDS ORDERED: ULTRAM50 MG PO (09:42)
== END 2022-03-23 10:50 | disposition home or self-care (01) | DRG 441 ==
LOC: ER 13:59 → ERHOLD 16:20 → MED/SURG3 20:02 → OBSVTOIN 03-20 11:56
PROVIDERS: ADMIT Internal Medicine; ATTEND Internal Medicine
DX: K76.82 Hepatic encephalopathy (principal); N17.0 Acute kidney failure with tubular necrosis; U07.1 COVID-19; N39.0 Urinary tract infection, site not specified; K74.60 Unspecified cirrhosis of liver; D69.6 Thrombocytopenia, unspecified; E11.22 Type 2 diabetes mellitus with diabetic chronic kidney disease; I12.9 Hypertensive chronic kidney disease with stage 1 through stage 4 chronic kidney disease, or unspecified chronic kidney disease; N18.9 Chronic kidney disease, unspecified; E03.9 Hypothyroidism, unspecified; D50.9 Iron deficiency anemia, unspecified; J44.9 Chronic obstructive pulmonary disease, unspecified; K75.81 Nonalcoholic steatohepatitis (NASH); Z90.710 Acquired absence of both cervix and uterus; Z79.4 Long term (current) use of insulin
CPT/HCPCS: 36415; 70450; 71045; 74181; 80048; 80053; 81001; 82140; 82270; 82607; 82746; 82948; 83540; 84466; 85025; 85045; 87086; 94799; 99284; G0378; J0696; J1980; J7030

== ENCOUNTER → 2022-06-30 | Day surgery (SDC) | payer MEDICARE, BC ==
[~2022-06-30] MED LIST changes: +FAMOTIDINE 20 MG/2 ML VIAL IV ONE; +FENTANYL CITRATE/PF 100MCG/2 ML INJ ONE; +GLYCOPYRROLATE INJ 0.2 MG/ML VIAL ONE; +HYDRALAZINE HCL25 MG PO; +LIDOCAINE HCL 2% LOCAL INJ 5 ML SDV VIAL INJ ONE; +ONDANSETRON HCL INJ 2MG/ML 2ML 2 MG/ML VIAL ONE; +POVIDONE IODINE 0.05% 0.05 % ML PO ONE; +PROPOFOL IV EMULSION 10 MG/ML 20 ML VIAL ONE; +ULTRAM50 MG PO
[2022-06-30 09:50] LABS: BASOPHILS # (AUTO) 0.1 (0.0-0.1); BASOPHILS % 1.1 % (0.0-1.0); EOSINOPHILS # (AUTO) 0.2 (0.0-0.4); EOSINOPHILS % 3.2 % (0.0-6.0); HEMATOCRIT 31.2 % (34.2-44.1); HEMOGLOBIN 9.8 g/dL (12.0-16.0); LYMPHOCYTES # (AUTO) 1.3 (1.0-3.2); LYMPHOCYTES % 27.7 % (18.0-39.1); MEAN CORPUSCULAR HEMOGLOBIN 32.6 pg (28-32); MEAN CORPUSCULAR HGB CONC 31.4 g/dL (31-35); MEAN CORPUSCULAR VOLUME 103.7 fL (81-99); MONOCYTES # (AUTO) 0.8 (0.2-0.8); MONOCYTES % 17.8 % (4.4-11.3); NEUTROPHILS # (AUTO) 2.3 (2.1-6.9); PLATELET COUNT 59 x10e3/uL (140-360); RED BLOOD COUNT 3.01 x10e6/uL (3.6-5.1); RED CELL DISTRIBUTION WIDTH 14.6 % (11.7-14.4)
[2022-06-30 10:19] LABS: ALBUMIN 2.5 g/dL (3.5-5.0); ALBUMIN/GLOBULIN RATIO 0.8 (0.8-2.0); ANION GAP 12.7 mmol/L (8-16); CALCIUM 8.4 mg/dL (8.4-10.2); CREATININE, SERUM 1.5 mg/dL (0.57-1.11); POTASSIUM 3.7 mmol/L (3.5-5.1)
[2022-06-30 12:10] VITALS: BP 127/50
== END | disposition home or self-care (01) ==
LOC: OR 09:00
PROVIDERS: ATTEND Internal Medicine Gastroenterology
DX: K74.60 Unspecified cirrhosis of liver (principal); I85.10 Secondary esophageal varices without bleeding; K29.00 Acute gastritis without bleeding; K29.50 Unspecified chronic gastritis without bleeding; K44.9 Diaphragmatic hernia without obstruction or gangrene; Z86.010 Personal history of colon polyps; K57.30 Diverticulosis of large intestine without perforation or abscess without bleeding; K72.90 Hepatic failure, unspecified without coma; R16.1 Splenomegaly, not elsewhere classified; G47.33 Obstructive sleep apnea (adult) (pediatric); J44.9 Chronic obstructive pulmonary disease, unspecified; I48.91 Unspecified atrial fibrillation; E11.22 Type 2 diabetes mellitus with diabetic chronic kidney disease; I12.9 Hypertensive chronic kidney disease with stage 1 through stage 4 chronic kidney disease, or unspecified chronic kidney disease; N18.30 Chronic kidney disease, stage 3 unspecified; E78.5 Hyperlipidemia, unspecified; M06.9 Rheumatoid arthritis, unspecified; E66.3 Overweight; Z91.048 Other nonmedicinal substance allergy status; Z88.8 Allergy status to other drugs, medicaments and biological substances; Z79.899 Other long term (current) drug therapy; Z79.4 Long term (current) use of insulin; Z68.27 Body mass index [BMI] 27.0-27.9, adult
CPT/HCPCS: 36415; 43239; 80053; 82947; 82948; 85025; 88305; 88342; C9113; J2001; J2405; J2704; J3010; 88312

== ENCOUNTER 2022-07-28 13:41 | Inpatient (IN) | payer MEDICARE, BC ==
[~2022-07-28] VITALS: Ht 165.1 cm; Wt 72.6 kg
[~2022-07-28 13:41] MED LIST changes: -FAMOTIDINE 20 MG/2 ML VIAL IV ONE; -FENTANYL CITRATE/PF 100MCG/2 ML INJ ONE; -GLYCOPYRROLATE INJ 0.2 MG/ML VIAL ONE; -LIDOCAINE HCL 2% LOCAL INJ 5 ML SDV VIAL INJ ONE; -ONDANSETRON HCL INJ 2MG/ML 2ML 2 MG/ML VIAL ONE; -POVIDONE IODINE 0.05% 0.05 % ML PO ONE; -PROPOFOL IV EMULSION 10 MG/ML 20 ML VIAL ONE
[2022-07-28] MEDS ORDERED: SODIUM CHLORIDE 0.9% 1000ML 1,000 ML IV STA (14:29)
[2022-07-28] MEDS ORDERED: NALOXONE HCL 2MG/2 ML SYRINGE IV PRN (14:30)
[2022-07-28 15:58] LABS: BASOPHILS # (AUTO) 0.1 (0.0-0.1); BASOPHILS % 0.6 % (0.0-1.0); EOSINOPHILS # (AUTO) 0.2 (0.0-0.4); EOSINOPHILS % 2.5 % (0.0-6.0); HEMATOCRIT 29.9 % (34.2-44.1); HEMOGLOBIN 9.8 g/dL (12.0-16.0); LYMPHOCYTES % 11.7 % (18.0-39.1); MEAN CORPUSCULAR HEMOGLOBIN 33.4 pg (28-32); MEAN CORPUSCULAR HGB CONC 32.8 g/dL (31-35); MONOCYTES # (AUTO) 1.2 (0.2-0.8); NEUTROPHILS # (AUTO) 6.1 (2.1-6.9); NEUTROPHILS % 70.7 % (38.7-80.0); PLATELET COUNT 90 x10e3/uL (140-360); RED BLOOD COUNT 2.93 x10e6/uL (3.6-5.1)
[2022-07-28 16:08] LABS: CLARITY,URINE CLOUDY (CLEAR); COLOR,URINE YELLOW (YELLOW); KETONES,URINE NEGATIVE (NEGATIVE); LEUKOCYTE ESTERASE ,URINE 1+ (NEGATIVE); NITRITE,URINE NEGATIVE (NEGATIVE); PROTEIN,URINE DIPSTICK NEGATIVE (NEGATIVE); URINE UROBILINOGEN 0.2 mg/dL (0.2 - 1)
[2022-07-28 16:10] LABS: INR 1.18; PARTIAL THROMBOPLASTIN TIME 33.2 seconds (23.8-35.5); PROTHROMBIN TIME 15.2 seconds (11.9-14.5)
[2022-07-28 16:14] LABS: BACTERIA,URINE MANY /HPF; EPITHELIAL CELLS,URINE FEW /LPF; RBC,URINE 0-5 /HPF (0-5); TRANSITIONAL EPI CELLS,URINE FEW; WBC,URINE (MAN) >50 /HPF (0-5)
[2022-07-28 16:15] LABS: RENAL EPITHELIAL CELLS,URINE FEW
[2022-07-28 16:21] LABS: ALBUMIN 2.8 g/dL (3.5-5.0); ALBUMIN/GLOBULIN RATIO 0.8 (0.8-2.0); ANION GAP 16.1 mmol/L (8-16); CALCIUM 9.3 mg/dL (8.4-10.2); CREATININE, SERUM 1.73 mg/dL (0.57-1.11); MAGNESIUM 2.3 MG/DL (1.3-2.1); POTASSIUM 4.1 mmol/L (3.5-5.1)
[2022-07-28 16:54] LABS: AMPHETAMINES SCREEN,URINE NEGATIVE (NEGATIVE); BENZODIAZEPINES SCREEN,URINE NEGATIVE (NEGATIVE); PHENCYCLIDINE SCREEN,URINE NEGATIVE (NEGATIVE)
[2022-07-28 17:06] LABS: SALICYLATE < 5.0 mg/dL (0-30)
[2022-07-28 17:49] LABS: ABG HCO3 22 mmol/L (22-26); ABG PCO2 33 mmHg (35-45); ABG PH 7.43 (7.35-7.45); ABG PO2 58 mmHg (80-105); ABG TCO2 23
[2022-07-28] MEDS ORDERED: ALBUTEROL SULF 0.083% NEB SOLN 3 ML NEB INH PRN (18:00)
[2022-07-28] MEDS ORDERED: TETANUS/DIPHTHERIA TOX ADULT 0.5 ML SYR IM ONE (18:30)
[2022-07-28] MEDS ORDERED: SODIUM CHLORIDE 0.9% 1000ML 1,000 ML IV ONE (19:00)
[2022-07-28] MEDS: LACTULOSE SYRUP 20 GM/30 ML UDC PO SCH (20:18)
[2022-07-28 20:37] VITALS: BP 133/41
[2022-07-28 20:38] VITALS: BP 133/41
[2022-07-28] MEDS ORDERED: POLYETHYLENE GLYCOL 3350 17 GM PACK PO PRN (22:45)
[2022-07-28 23:00] VITALS: BP 136/47
[2022-07-29] VITALS (23 sets, daily range): BP systolic 140–177; BP diastolic 44–62
[2022-07-29 01:02] LABS: CREATINE KINASE MB 4.2 ng/mL (0-5.0)
[2022-07-29] MEDS: LEVOTHYROXINE SODIUM 112 MCG TAB PO SCH (06:00)
[2022-07-29 06:20] LABS: BASOPHILS % 0.4 % (0.0-1.0); EOSINOPHILS # (AUTO) 0.1 (0.0-0.4); EOSINOPHILS % 1.8 % (0.0-6.0); HEMATOCRIT 26.1 % (34.2-44.1); HEMOGLOBIN 8.4 g/dL (12.0-16.0); LYMPHOCYTES # (AUTO) 1.2 (1.0-3.2); LYMPHOCYTES % 15.6 % (18.0-39.1); MEAN CORPUSCULAR HEMOGLOBIN 33.2 pg (28-32); MEAN CORPUSCULAR HGB CONC 32.2 g/dL (31-35); MEAN CORPUSCULAR VOLUME 103.2 fL (81-99); MONOCYTES # (AUTO) 1.2 (0.2-0.8); MONOCYTES % 16.1 % (4.4-11.3); NEUTROPHILS # (AUTO) 5.1 (2.1-6.9); NEUTROPHILS % 65.8 % (38.7-80.0); PLATELET COUNT 69 x10e3/uL (140-360); RED BLOOD COUNT 2.53 x10e6/uL (3.6-5.1); RED CELL DISTRIBUTION WIDTH 14.8 % (11.7-14.4)
[2022-07-29 06:41] LABS: ALBUMIN 2.2 g/dL (3.5-5.0); ALBUMIN/GLOBULIN RATIO 0.8 (0.8-2.0); CALCIUM 8.6 mg/dL (8.4-10.2); CHOL/HDL RATIO 4.6 (3.0-3.6); CREATININE, SERUM 1.7 mg/dL (0.57-1.11)
[2022-07-29 06:50] LABS: CREATINE KINASE MB 4.4 ng/mL (0-5.0)
[2022-07-29] MEDS: RIFAXIMIN 550 MG TABLET PO SCH ×2 (09:00→16:36)
[2022-07-29] MEDS: ATENOLOL 50 MG TAB PO SCH ×2 (09:00→16:36)
[2022-07-29] MEDS: MUPIROCIN 2% OINT 22 GM TUBE TOP SCH ×2 (09:00→20:54)
[2022-07-29] MEDS: DOCUSATE SODIUM 100 MG CAP PO SCH ×2 (09:00→16:36)
[2022-07-29] MEDS: LACTULOSE SYRUP 20 GM/30 ML UDC PO SCH ×3 (09:00→20:54)
[2022-07-29] MEDS: HYDRALAZINE HCL 20 MG/ML VIAL IV PRN (19:41)
[2022-07-29] MEDS: ACETAMINOPHEN 325 MG TAB PO PRN (19:42)
[2022-07-30] VITALS (10 sets, daily range): BP systolic 74–168; BP diastolic 41–60
[2022-07-30] MEDS: LEVOTHYROXINE SODIUM 112 MCG TAB PO SCH (06:07)
[2022-07-30] MEDS: HYDRALAZINE HCL 20 MG/ML VIAL IV PRN (06:34)
[2022-07-30] MEDS: LACTULOSE SYRUP 20 GM/30 ML UDC PO SCH ×3 (07:46→21:15)
[2022-07-30] MEDS: ATENOLOL 50 MG TAB PO SCH ×2 (07:47→17:21)
[2022-07-30] MEDS: RIFAXIMIN 550 MG TABLET PO SCH ×2 (07:47→17:20)
[2022-07-30] MEDS: DOCUSATE SODIUM 100 MG CAP PO SCH ×2 (07:48→17:21)
[2022-07-30] MEDS: MUPIROCIN 2% OINT 22 GM TUBE TOP SCH ×2 (07:48→21:00)
[2022-07-30] MEDS ORDERED: SODIUM CHLORIDE 0.9% 500ML 500 ML ONE (11:36)
[2022-07-30] MEDS: SODIUM BICARBONATE 650 MG TAB PO SCH (17:20)
[2022-07-31] VITALS (7 sets, daily range): BP systolic 149–167; BP diastolic 52–65
[2022-07-31] MEDS: LEVOTHYROXINE SODIUM 112 MCG TAB PO SCH (05:33)
[2022-07-31 05:50] LABS: BASOPHILS # (AUTO) 0.1 (0.0-0.1); BASOPHILS % 0.8 % (0.0-1.0); EOSINOPHILS # (AUTO) 0.4 (0.0-0.4); EOSINOPHILS % 4.8 % (0.0-6.0); HEMATOCRIT 24.8 % (34.2-44.1); HEMOGLOBIN 8.2 g/dL (12.0-16.0); LYMPHOCYTES # (AUTO) 1.3 (1.0-3.2); LYMPHOCYTES % 16.9 % (18.0-39.1); MEAN CORPUSCULAR HEMOGLOBIN 33.6 pg (28-32); MEAN CORPUSCULAR HGB CONC 33.1 g/dL (31-35); MEAN CORPUSCULAR VOLUME 101.6 fL (81-99); MONOCYTES # (AUTO) 1.2 (0.2-0.8); NEUTROPHILS # (AUTO) 4.5 (2.1-6.9); NEUTROPHILS % 60.8 % (38.7-80.0); PLATELET COUNT 56 x10e3/uL (140-360); RED BLOOD COUNT 2.44 x10e6/uL (3.6-5.1); RED CELL DISTRIBUTION WIDTH 14.5 % (11.7-14.4)
[2022-07-31 06:11] LABS: ANION GAP 13.5 mmol/L (8-16); CALCIUM 8.3 mg/dL (8.4-10.2); CREATININE, SERUM 1.51 mg/dL (0.57-1.11); POTASSIUM 3.5 mmol/L (3.5-5.1)
[2022-07-31] MEDS: DOCUSATE SODIUM 100 MG CAP PO SCH ×2 (09:00→17:00)
[2022-07-31] MEDS: MUPIROCIN 2% OINT 22 GM TUBE TOP SCH ×2 (09:00→21:00)
[2022-07-31] MEDS: RIFAXIMIN 550 MG TABLET PO SCH ×2 (09:46→16:37)
[2022-07-31] MEDS: ATENOLOL 50 MG TAB PO SCH ×2 (09:46→16:39)
[2022-07-31] MEDS: SODIUM BICARBONATE 650 MG TAB PO SCH ×2 (09:46→16:37)
[2022-07-31] MEDS: AZITHROMYCIN 250 MG TAB PO SCH (09:47)
[2022-07-31] MEDS: ACETAMINOPHEN 325 MG TAB PO PRN ×2 (09:48→16:37)
[2022-07-31] MEDS: LACTULOSE SYRUP 20 GM/30 ML UDC PO SCH ×4 (10:00→21:02)
[2022-08-01] VITALS (7 sets, daily range): BP systolic 140–168; BP diastolic 43–86
[2022-08-01 05:43] LABS: HEMATOCRIT 23.9 % (34.2-44.1); HEMOGLOBIN 7.8 g/dL (12.0-16.0)
[2022-08-01 05:56] LABS: ANION GAP 11.3 mmol/L (8-16); CALCIUM 7.8 mg/dL (8.4-10.2); CREATININE, SERUM 1.45 mg/dL (0.57-1.11); POTASSIUM 3.3 mmol/L (3.5-5.1)
[2022-08-01] MEDS: LEVOTHYROXINE SODIUM 112 MCG TAB PO SCH (06:15)
[2022-08-01 06:23] LABS: FERRITIN 115.08 ng/mL (4.63-204.00)
[2022-08-01] MEDS: LACTULOSE SYRUP 20 GM/30 ML UDC PO SCH ×3 (09:57→21:23)
[2022-08-01] MEDS: DOCUSATE SODIUM 100 MG CAP PO SCH ×2 (09:58→16:51)
[2022-08-01] MEDS: RIFAXIMIN 550 MG TABLET PO SCH ×2 (09:58→16:49)
[2022-08-01] MEDS: SODIUM BICARBONATE 650 MG TAB PO SCH ×2 (09:59→16:51)
[2022-08-01] MEDS: ATENOLOL 50 MG TAB PO SCH ×2 (09:59→16:50)
[2022-08-01] MEDS: AZITHROMYCIN 250 MG TAB PO SCH (10:00)
[2022-08-01] MEDS: MUPIROCIN 2% OINT 22 GM TUBE TOP SCH ×2 (10:01→21:00)
[2022-08-01] MEDS: FUROSEMIDE 20 MG TAB PO SCH (10:01)
[2022-08-01] MEDS: ACETAMINOPHEN 325 MG TAB PO PRN (21:22)
[2022-08-02] VITALS (10 sets, daily range): BP systolic 127–166; BP diastolic 57–87
[2022-08-02] MEDS: LEVOTHYROXINE SODIUM 112 MCG TAB PO SCH (06:18)
[2022-08-02] MEDS: LACTULOSE SYRUP 20 GM/30 ML UDC PO SCH ×3 (09:08→21:00)
[2022-08-02] MEDS: AZITHROMYCIN 250 MG TAB PO SCH (09:08)
[2022-08-02] MEDS: RIFAXIMIN 550 MG TABLET PO SCH ×2 (09:08→17:38)
[2022-08-02] MEDS: SODIUM BICARBONATE 650 MG TAB PO SCH ×2 (09:08→17:38)
[2022-08-02] MEDS: FUROSEMIDE 20 MG TAB PO SCH (09:09)
[2022-08-02] MEDS: ATENOLOL 50 MG TAB PO SCH ×2 (09:09→17:39)
[2022-08-02] MEDS: MUPIROCIN 2% OINT 22 GM TUBE TOP SCH ×2 (09:09→21:00)
[2022-08-02] MEDS: DOCUSATE SODIUM 100 MG CAP PO SCH ×2 (09:09→17:00)
[2022-08-02 12:45] LABS: ANION GAP 10.5 mmol/L (8-16); CALCIUM 7.7 mg/dL (8.4-10.2); CREATININE, SERUM 1.57 mg/dL (0.57-1.11); POTASSIUM 3.5 mmol/L (3.5-5.1)
[2022-08-02] MEDS: ACETAMINOPHEN 325 MG TAB PO PRN ×2 (12:47→23:53)
[2022-08-02] MEDS ORDERED: SODIUM CHLORIDE 0.9% 250ML 250 ML IV ONE (13:00)
[2022-08-02] MEDS ORDERED: POTASSIUM CHLORIDE 20 MEQ TAB CR PO ONE (13:30)
[2022-08-02] MEDS ORDERED: BUMETANIDE INJ 0.25MG/ML 4ML VIAL IV ONE (13:30)
[2022-08-02] MEDS ORDERED: SODIUM CHLORIDE 0.9% 250ML 250 ML ONE (16:23)
[2022-08-03] MEDS: LEVOTHYROXINE SODIUM 112 MCG TAB PO SCH (05:58)
[2022-08-03 06:31] VITALS: BP 149/91
[2022-08-03 07:15] VITALS: BP 167/58
[2022-08-03] MEDS ORDERED: PANTOPRAZOLE SOD 40 MG TABEC PO SCH (07:30)
[2022-08-03 08:29] VITALS: BP 167/58
[2022-08-03] MEDS ORDERED: BUMETANIDE 1 MG TAB PO SCH (09:00)
[2022-08-03] MEDS: DOCUSATE SODIUM 100 MG CAP PO SCH (09:00)
[2022-08-03] MEDS: SODIUM BICARBONATE 650 MG TAB PO SCH (09:15)
[2022-08-03] MEDS: AZITHROMYCIN 250 MG TAB PO SCH (09:15)
[2022-08-03] MEDS: ATENOLOL 50 MG TAB PO SCH (09:15)
[2022-08-03] MEDS: RIFAXIMIN 550 MG TABLET PO SCH (09:16)
[2022-08-03] MEDS: LACTULOSE SYRUP 20 GM/30 ML UDC PO SCH ×2 (09:16→15:22)
[2022-08-03] MEDS: MUPIROCIN 2% OINT 22 GM TUBE TOP SCH (09:19)
[2022-08-03 11:54] LABS: HEMATOCRIT 28.1 % (34.2-44.1); HEMOGLOBIN 9.5 g/dL (12.0-16.0)
[2022-08-03 12:13] VITALS: BP 158/60
[2022-08-03 12:17] LABS: ANION GAP 11.3 mmol/L (8-16); CALCIUM 7.7 mg/dL (8.4-10.2); CREATININE, SERUM 1.39 mg/dL (0.57-1.11); POTASSIUM 3.3 mmol/L (3.5-5.1)
[2022-08-03] MEDS ORDERED: AZITHROMYCIN250 MG PO (13:47)
[2022-08-03] MEDS ORDERED: ACETAMINOPHEN325 M1 PO (13:47)
[2022-08-03] MEDS ORDERED: SODIUM BICARBO650 MG PO (13:47)
[2022-08-03] MEDS ORDERED: MUPIROCIN22 GM TOP (13:47)
[2022-08-03] MEDS ORDERED: BUMETANIDE1 MG PO (13:47)
[2022-08-03] MEDS ORDERED: CEFUROXIME250 MG PO (13:51)
[2022-08-03] MEDS ORDERED: CEFTRIAXON1 GM/50 M2 IV (14:25)
[2022-08-03] MEDS: ACETAMINOPHEN 325 MG TAB PO PRN (15:21)
[2022-08-03 15:30] VITALS: BP 158/73
== END 2022-08-03 15:52 | DRG 441 ==
LOC: ER 13:46 → ERHOLD 17:45 → ICU 20:09 → MED/SURG 07-30 09:53
PROVIDERS: ADMIT Internal Medicine; ATTEND Internal Medicine
PROC: 02HV33Z Insertion of Infusion Device into Superior Vena Cava, Percutaneous Approach (ICD-10-PCS; principal; 2022-07-28)
PROC: 30243N1 Transfusion of Nonautologous Red Blood Cells into Central Vein, Percutaneous Approach (ICD-10-PCS; 2022-07-28)
DX: K76.82 Hepatic encephalopathy (principal); G93.41 Metabolic encephalopathy; S42.292A Other displaced fracture of upper end of left humerus, initial encounter for closed fracture; N17.9 Acute kidney failure, unspecified; N39.0 Urinary tract infection, site not specified; E87.20 Acidosis, unspecified; N18.4 Chronic kidney disease, stage 4 (severe); J44.9 Chronic obstructive pulmonary disease, unspecified; Z88.2 Allergy status to sulfonamides; Z88.8 Allergy status to other drugs, medicaments and biological substances; K74.69 Other cirrhosis of liver; K75.81 Nonalcoholic steatohepatitis (NASH); E11.22 Type 2 diabetes mellitus with diabetic chronic kidney disease; I12.9 Hypertensive chronic kidney disease with stage 1 through stage 4 chronic kidney disease, or unspecified chronic kidney disease; Z79.4 Long term (current) use of insulin; W19.XXXA Unspecified fall, initial encounter; E03.9 Hypothyroidism, unspecified; D69.6 Thrombocytopenia, unspecified; D64.9 Anemia, unspecified; B96.20 Unspecified Escherichia coli [E. coli] as the cause of diseases classified elsewhere; N20.0 Calculus of kidney; D63.8 Anemia in other chronic diseases classified elsewhere; Z20.822 Contact with and (suspected) exposure to COVID-19
CPT/HCPCS: 36415; 36569; 70450; 71045; 72125; 74176; 80048; 80053; 80061; 80307; 80320; 80329; 81001; 82140; 82550; 82553; 82728; 82805; 82948; 83036; 83540; 83690; 83735; 83880; 84466; 84484; 85014; 85018; 85025; 85610; 85730; 86850; 86900; 86920; 87040; 87086; 87186; 90714; 93005; 93306; 94799; 99252; 99284; J0696; J2310; J2543; J7030; J7040; J7050; P9016